=== PATIENT | female | born 1940 | race Caucasian/White ===

== ENCOUNTER 2016-12-09 20:45 | Emergency (ER) | payer MEDICARE, MEDICAID ==
[2016-12-09 21:07] VITALS: BP 151/84
--- NOTE | 2016-12-09 21:35 | EDM.PDOC ---
ED HPI Skin/Rash - General Chief Complaint: Skin Complaint Stated Complaint: left foot redness Time Seen by Provider: 12/09/16 20:50 Source: Reports: Patient, Family, retirement records, RN, RN notes reviewed History Limitations: Reports: No limitations - History of Present Illness INITIAL COMMENTS - FREE TEXT/NARRATIVE: Patient is brought to the emergency room at [facility] by her son for concerns of left foot pain and new onset swelling. The patient states she noticed increased redness and swelling of the left foot earlier today. The patient states she has pain only on the dorsum side of the foot. The patient states that it is painful to ambulate. The patient denies any shortness of breath. No chest pain. No previous history of any left foot injury or trauma. No previous history of any left foot surgeries. According to [facility] records the patient had a temperature of 99.2 prior to presentation. Symptom Onset Date: 12/09/16 Timing: Reports: gradual onset Location, Skin: Reports: lower extremity, left Severity: mild - Related Data Allergies Allergy/AdvReac Type Severity Reaction Status Date / Time No Known Allergies Allergy Verified 12/09/16 21:28 Home Meds: Ambulatory Orders Medication Instructions Recorded Confirmed Acetaminophen [Tylenol] 1 tab PO Q4H PRN 08/01/14 12/09/16 Sennosides/Docusate Sodium 2 each PO BID 08/01/14 12/09/16 [Senna-S] traZODone 50 mg PO BEDTIME PRN #30 tablet 12/04/14 12/09/16 Bisacodyl 5 mg PO ASDIRECTED PRN 02/04/16 12/09/16 Bisacodyl 10 mg RC DAILY PRN 02/04/16 12/09/16 Calcium Carbonate [Tums] 500 mg PO DAILY 02/04/16 02/04/16 Cyanocobalamin (Vitamin B-12) 1,000 mcg PO DAILY 02/04/16 02/04/16 [Vitamin B-12] Ergocalciferol (Vitamin D2) 2,000 unit PO DAILY 02/04/16 12/09/16 [Vitamin D2] Linaclotide [Linzess] 145 mcg PO DAILY 02/04/16 12/09/16 Omeprazole Magnesium [Prilosec Otc] 20 mg PO DAILY 02/04/16 12/09/16 Polyethylene Glycol 3350 [MiraLAX] 17 gm PO BID PRN 02/04/16 12/09/16 rOPINIRole HCl [Requip] 0.5 mg PO TID 02/04/16 12/09/16 traMADol [Ultram] 100 mg PO TID PRN 02/04/16 12/09/16 Calcium Carbonate [Tums Ultra] 400 mg PO Q6H PRN 12/09/16 12/09/16 Cyanocobalamin (Vitamin B-12) 1,000 mcg IJ ASDIRECTED 12/09/16 12/09/16 [B-12 Compliance] DULoxetine [Cymbalta] 60 mg PO DAILY 12/09/16 12/09/16 Ferrous Gluconate 324 mg PO DAILY 12/09/16 12/09/16 Gabapentin [Neurontin] 100 mg PO BID 12/09/16 12/09/16 Ibuprofen 400 mg PO Q6H PRN 12/09/16 12/09/16 Levothyroxine 25 mcg PO ACBREAKFAST 12/09/16 12/09/16 Magnesium Amino Acid Chelate 128 mg PO BID 12/09/16 12/09/16 [Magnesium] Menthol [Cough Drops] 5.8 mg MM ASDIRECTED PRN 12/09/16 12/09/16 Potassium Chloride 10 meq PO BID 12/09/16 12/09/16 Past Medical History Gastrointestinal History: Reports: Chronic constipation, GERD Musculoskeletal History: Reports: Back pain, chronic, Osteoarthritis, Osteoporosis, Other (see below) Other Musculoskeletal History: disorder of bone, unspecified Neurological History: Reports: Other (see below) Other Neuro History: unspecified dementia without behavioral disturbance Psychiatric History: Reports: Anxiety, Dementia, Depression Endocrine/Metabolic History: Reports: Hypothyroidism Social & Family History - Family History Family Medical History: Noncontributory - Tobacco Use Smoking Status *Q: Former Smoker Years of Tobacco use: 60 Second Hand Smoke Exposure: No - Alcohol Use Days Per Week of Alcohol Use: 0 - Recreational Drug Use Recreational Drug Use: No ED ROS GENERAL - Review of Systems Review Of Systems: See Below Constitutional: Denies: fever, chills, weakness Respiratory: Denies: Shortness of Breath, Cough Cardiovascular: Denies: Chest pain, Palpitations Musculoskeletal: Reports: foot pain (left, with swelling) Skin: Reports: erythema (left foot) Neurological: Reports: No Symptoms. Denies: Headache, Numbness, Paresthesia, Tingling ED EXAM, SKIN/RASH Exam: See Below Exam Limited By: No limitations General Appearance: alert, no apparent distress Respiratory/Chest: no respiratory distress, lungs clear, normal breath sounds Cardiovascular: regular rate, rhythm Peripheral Pulses: 1+: posterior tibial (L), dorsalis pedis (L), 2+: radial (L) , radial (R) Extremities: pedal edema (Left +2), increased warmth (Left foot), redness (Left foot). No: Yves's Sign Neurological: alert, oriented Skin: Warm, Dry, Intact, Normal color, No rash, Erythema (Left foot), Increased warmth (Left foot) Location, Skin: lower extremity, left Associated features: warmth, tenderness, swelling Course - Vital Signs Last Recorded V/S: Last Vital Signs Temp 36.6 C 12/09/16 21:03 Pulse 76 12/09/16 21:03 Resp 18 12/09/16 21:03 BP 151/84 H 12/09/16 21:03 Pulse Ox 95 12/09/16 21:03 - Orders/Labs/Meds Orders: Active Orders 24 hr Category Date Time Status Foot Comp Min 3V Lt [CR] Stat Exams 12/09/16 21:06 Taken Labs: Laboratory Tests 12/09/16 12/09/16 12/09/16 Range/Units 21:34 21:34 21:34 WBC 8.1 (4.0-10.0) x10^3/uL RBC 4.10 (4.00-5.50) x10^6/uL Hgb 11.7 L (12.0-16.0) g/dL Hct 37.2 (33.0-47.0) % MCV 90.7 (78.0-93.0) fL MCH 28.5 (26.0-32.0) pg MCHC 31.5 L (32.0-36.0) g/dL RDW Coeff of Randell 15.5 H (10.0-15.0) % Plt Count 219 (130-400) x10^3/uL Neut % (Auto) 63.7 (50.0-80.0) % Lymph % (Auto) 21.7 L (25.0-50.0) % [place] % (Auto) 8.6 (2.0-11.0) % Eos % (Auto) 5.8 H (0.0-4.0) % Baso % (Auto) 0.2 (0.2-1.2) % D-Dimer, Quantitative 1.13 H (<=0.58) mg/LFEU Sodium 139 (136-145) mmol/L Potassium 4.0 (3.5-5.1) mmol/L Chloride 102 (98-107) mmol/L Carbon Dioxide 32 (21-32) mmol/L BUN 10 (7-18) mg/dL Creatinine 0.7 (0.55-1.02) mg/dL Est Cr Clr Drug Dosing TNP Estimated GFR (MDRD) > 60 Glucose 85 (74-106) mg/dL Lactic Acid (0.4-2.0) mmol/L Calcium 9.4 (8.5-10.1) mg/dL C-Reactive Protein < 0.2 (<=0.9) mg/dL 12/09/16 Range/Units 21:34 WBC (4.0-10.0) x10^3/uL RBC (4.00-5.50) x10^6/uL Hgb (12.0-16.0) g/dL Hct (33.0-47.0) % MCV (78.0-93.0) fL MCH (26.0-32.0) pg MCHC (32.0-36.0) g/dL RDW Coeff of Randell (10.0-15.0) % Plt Count (130-400) x10^3/uL Neut % (Auto) (50.0-80.0) % Lymph % (Auto) (25.0-50.0) % [place] % (Auto) (2.0-11.0) % Eos % (Auto) (0.0-4.0) % Baso % (Auto) (0.2-1.2) % D-Dimer, Quantitative (<=0.58) mg/LFEU Sodium (136-145) mmol/L Potassium (3.5-5.1) mmol/L Chloride (98-107) mmol/L Carbon Dioxide (21-32) mmol/L BUN (7-18) mg/dL Creatinine (0.55-1.02) mg/dL Est Cr Clr Drug Dosing Estimated GFR (MDRD) Glucose (74-106) mg/dL Lactic Acid 1.3 (0.4-2.0) mmol/L Calcium (8.5-10.1) mg/dL C-Reactive Protein (<=0.9) mg/dL Meds: Medications Discontinued Medications Generic Name Dose Route Start Last Admin Trade Name Freq PRN Reason Stop Dose Admin Ceftriaxone Sodium 1 gm/ 0 gm 12/09/16 21:58 Lidocaine HCl 2.1 ml IM 12/09/16 21:59 ONETIME ONE - Radiology Interpretation Free Text/Narrative:: No acute fracture or dislocation; mild soft tissue swelling; severe bone demineralization; See scanned report in EMR Discussed with Dr. Fletcher Isbell, Radiology Departure - Departure Time of Disposition: 22:01 Disposition: DC/Tfer to [facility] 03 Condition: good Clinical Impression: Cellulitis of foot, left Instructions: Cellulitis, Adult Referrals: Sandy Salcedo, DO [Primary Care Provider] - Forms: ED Department Discharge Additional Instructions: 1. Stay well hydrated and rest 2. Take your antibiotics for the full coarse, even if you are feeling better 3. May use Tylenol for discomfort 4. Rest, elevate, and use some ice on the foot several times a day 5. If symptoms worsen over the next day or so, return for further evaluation 6. See you Primary as symptoms warrant - Problem List Review Problem List Initiated/Reviewed/Updated: Yes - My Orders Last 24 Hours: My Active Orders 12/09/16 21:06 Foot Comp Min 3V Lt [CR] Stat - Assessment/Plan Last 24 Hours: My Active Orders 12/09/16 21:06 Foot Comp Min 3V Lt [CR] Stat Plan: Patient will be discharge back to [place] and treated with oral abx for cellulitis of left foot. D-dimer is elevated, however physical assessment does not support a diagnosis of DVT. Patient was given 1 g IM Rocephin prior to discharge. Please see discharge instructions. Case discussed with Dr. Cyndie Brown.
[2016-12-09 21:56] LABS: CHLORIDE,CL 102 mmol/L (98-107); SODIUM,NA 139 mmol/L (136-145)
[2016-12-09] MEDS ORDERED: cefTRIAXone 1 GM, Lidocaine 1% 2.1 ML IM ONE ×2 (21:58)
== END 2016-12-09 22:26 ==
LOC: VM.ED 20:45
DX: L03.116 Cellulitis of left lower limb (principal); K21.9 Gastro-esophageal reflux disease without esophagitis; F03.90 Unspecified dementia, unspecified severity, without behavioral disturbance, psychotic disturbance, mood disturbance, and anxiety; F41.9 Anxiety disorder, unspecified; F32.9 Major depressive disorder, single episode, unspecified; E03.9 Hypothyroidism, unspecified; Z79.899 Other long term (current) drug therapy; Z87.891 Personal history of nicotine dependence
CPT/HCPCS: 36415; 73630; 80048; 83605; 85025; 85379; 86140; 96372; 99284; J0696; 99283-GF

== ENCOUNTER 2017-02-13 16:18 | Inpatient (IN) | payer MEDICARE, MEDICAID ==
[2017-02-13] MEDS ORDERED: Sodium Chloride 0.9% 1,000 ML IV ONE (16:43)
[2017-02-13] MEDS ORDERED: Sodium Chloride 0.9% 10 ML Syringe FLUSH PRN (16:43)
[2017-02-13 17:32] LABS: CHLORIDE,CL 117 mmol/L (98-107); SODIUM,NA 154 mmol/L (136-145)
--- NOTE | 2017-02-13 18:24 | EDM.PDOC ---
ED HPI GENERAL MEDICAL PROBLEM - General Chief Complaint: Gastrointestinal Problem Stated Complaint: diarrhea, dehydration Time Seen by Provider: 02/13/17 16:32 Source of Information: Reports: Patient, Custodial Records, Other History Limitations: Reports: No Limitations - History of Present Illness INITIAL COMMENTS - FREE TEXT/NARRATIVE: Patient has had diarrhea for the last week. Report from the senior living states she is dehydrated, has become weak, and has needed assists to get around. This is not how she usually acts. She has been getting retirement antibiotics for treatment of peripheral vascular disease. She has had a low grade temp from time to time. She denies headache, chest pain, shortness of breath. Denies any urinary problems. Abdominal aches/pains are endorsed. Recommendation to come to the ER from her PCP Dr. Sandy Salcedo. Medical history includes dementia, anxiety, hypokalemia, hypothyroidism, depression, anemia, GERD, PVD Onset: Gradual Associated Symptoms: Reports: Other (diarrhea) - Related Data Allergies Allergy/AdvReac Type Severity Reaction Status Date / Time No Known Allergies Allergy Verified 02/13/17 16:42 Home Meds: Home Meds Acetaminophen [Tylenol] 1 tab PO Q4H PRN 08/01/14 [History] Sennosides/Docusate Sodium [Senna-S] 2 each PO BID 08/01/14 [History] traZODone 50 mg PO BEDTIME PRN #30 tablet 12/04/14 [Rx] Bisacodyl 5 mg PO ASDIRECTED PRN 02/04/16 [History] Bisacodyl 10 mg RC DAILY PRN 02/04/16 [History] Calcium Carbonate [Tums] 500 mg PO DAILY 02/04/16 [History] Ergocalciferol (Vitamin D2) [Vitamin D2] 2,000 unit PO DAILY 02/04/16 [History] Linaclotide [Linzess] 145 mcg PO DAILY 02/04/16 [History] Omeprazole Magnesium [Prilosec Otc] 20 mg PO DAILY 02/04/16 [History] Polyethylene Glycol 3350 [MiraLAX] 17 gm PO BID PRN 02/04/16 [History] rOPINIRole HCl [Requip] 0.5 mg PO TID 02/04/16 [History] Calcium Carbonate [Tums Ultra] 400 mg PO Q6H PRN 12/09/16 [History] Cyanocobalamin (Vitamin B-12) [B-12 Compliance] 1,000 mcg IJ ASDIRECTED [History] DULoxetine [Cymbalta] 60 mg PO DAILY 12/09/16 [History] Ferrous Gluconate 324 mg PO DAILY 12/09/16 [History] Gabapentin [Neurontin] 100 mg PO BID 12/09/16 [History] Ibuprofen 400 mg PO Q6H PRN 12/09/16 [History] Levothyroxine 25 mcg PO ACBREAKFAST 12/09/16 [History] Magnesium Amino Acid Chelate [Magnesium] 128 mg PO BID 12/09/16 [History] Menthol [Cough Drops] 5.8 mg MM ASDIRECTED PRN 12/09/16 [History] Potassium Chloride 10 meq PO BID 12/09/16 [History] Loperamide HCl [Imodium A-D] 4 mg PO ASDIRECTED PRN 02/13/17 [History] Past Medical History Gastrointestinal History: Reports: Chronic Constipation, GERD Musculoskeletal History: Reports: Back Pain, Chronic, Osteoarthritis, Osteoporosis, Other (See Below) Other Musculoskeletal History: disorder of bone, unspecified Neurological History: Reports: Other (See Below) Other Neuro History: unspecified dementia without behavioral disturbance Psychiatric History: Reports: Anxiety, Dementia, Depression, Mood Swings, Other (See Below) Other Psychiatric History: restless leg syndrome Endocrine/Metabolic History: Reports: Hypothyroidism Hematologic History: Reports: Anemia Social & Family History - Family History Family Medical History: Noncontributory - Tobacco Use Smoking Status *Q: Unknown Ever Smoked Years of Tobacco use: 60 Second Hand Smoke Exposure: No - Alcohol Use Days Per Week of Alcohol Use: 0 - Recreational Drug Use Recreational Drug Use: No ED ROS GENERAL - Review of Systems Review Of Systems: See Below Constitutional: Reports: Malaise, Weakness HEENT: Reports: No Symptoms Respiratory: Reports: No Symptoms Cardiovascular: Reports: No Symptoms Endocrine: Reports: No Symptoms GI/Abdominal: Reports: Diarrhea : Reports: No Symptoms Musculoskeletal: Reports: No Symptoms Skin: Reports: No Symptoms Neurological: Reports: Weakness Psychiatric: Reports: No Symptoms Hematologic/Lymphatic: Reports: No Symptoms Immunologic: Reports: No Symptoms ED EXAM, GI/ABD - Physical Exam Exam: See Below Exam Limited By: No Limitations General Appearance: Alert, WD/WN, Mild Distress Eyes: Bilateral: EOMI Throat/Mouth: Normal Inspection, Normal Oropharynx Head: Atraumatic, Normocephalic Neck: Normal Inspection, Supple, Non-Tender Respiratory/Chest: No Respiratory Distress, Lungs Clear, Normal Breath Sounds Cardiovascular: Normal Peripheral Pulses, Regular Rate, Rhythm, No Edema, No Gallop, Systolic Murmur GI/Abdominal: Normal Bowel Sounds, Soft, No Organomegaly, No Distention, Tenderness Back Exam: Normal Inspection, Full Range of Motion Extremities: Normal Range of Motion, Non-Tender, Slow Capillary Refill, Mottled (right hand fingers are purple with slow capillary refill, pulses are intact) Neurological: Alert, Oriented, CN II-XII Intact, Normal Reflexes, No Motor/ Sensory Deficits, Slow to Respond, Abnormal Gait Psychiatric: Normal Affect, Normal Mood Skin Exam: Warm, Dry, Intact, Ecchymosis, Erythema, Petechiae (to bilateral lower legs) Lymphatic: No Adenopathy Course - Vital Signs Last Recorded V/S: Last Vital Signs Temp 37.3 C 02/13/17 16:20 Pulse 115 H 02/13/17 17:29 Resp 14 02/13/17 17:29 BP 144/62 H 02/13/17 17:29 Pulse Ox 94 L 02/13/17 17:29 - Orders/Labs/Meds Orders: Active Orders 24 hr Category Date Time Status Chest 1V Frontal [CR] Stat Exams 02/13/17 17:42 Ordered BLOOD GAS ARTERIAL [BG] Stat Lab 02/13/17 17:44 Ordered C DIFFICILE TOXIN BY PCR [MREF] Stat Lab 02/13/17 16:43 Uncollected CULTURE BLOOD [BC] Stat Lab 02/13/17 17:44 Ordered CULTURE BLOOD [BC] Stat Lab 02/13/17 17:44 Ordered LACTIC ACID [CHEM] Stat Lab 02/13/17 17:44 Ordered OVA & PARASITES Routine Lab 02/13/17 16:44 Uncollected Sodium Chloride 0.9% [Saline Flush] Med 02/13/17 16:43 Ordered 10 ml FLUSH ASDIRECTED PRN Vancomycin Pharmacy to Dose [Pharmacy to Dose - Med 02/13/17 18:15 Ordered Vancomycin] 1 dose .XX ASDIRECTED metroNIDAZOLE/Normal Saline [Flagyl 500 MG in NS 100 ML Med 02/13/17 18:15 Ordered ] 500 mg Premix Bag 1 bag IV Q8H Blood Culture x2 Reflex Set [OM.PC] Stat Oth 02/13/17 17:44 Ordered Isolation [COMM] Urgent Oth 02/13/17 16:43 Ordered Saline Lock Insert [OM.PC] Routine Oth 02/13/17 16:43 Ordered Medication Orders Metronidazole 500 mg/ Premix 100 mls @ 100 mls/hr IV Q8H [facility] Sodium Chloride (Saline Flush) 10 ml FLUSH ASDIRECTED PRN PRN Reason: Keep Vein Open Vancomycin HCl (Pharmacy To Dose - Vancomycin) 1 dose .XX ASDIRECTED [facility] Labs: Laboratory Tests 02/13/17 02/13/17 02/13/17 Range/Units 16:55 16:55 17:21 WBC 35.7 H* (4.0-10.0) x10^3/uL RBC 5.28 (4.00-5.50) x10^6/uL Hgb 15.5 D (12.0-16.0) g/dL Hct 47.6 H (33.0-47.0) % MCV 90.2 (78.0-93.0) fL MCH 29.4 (26.0-32.0) pg MCHC 32.6 (32.0-36.0) g/dL RDW Coeff of Randell 16.5 H (10.0-15.0) % Plt Count 313 D (130-400) x10^3/uL Add Manual Diff Yes Neutrophils % (Manual) 87 H (50-80) % Band Neutrophils % 5 (0-6) % Lymphocytes % (Manual) 7 L (25-50) % Atypical Lymphs % 1 H (0) % Platelet Estimate Adequate Sodium 154 H D (136-145) mmol/L Potassium 4.5 (3.5-5.1) mmol/L Chloride 117 H D (98-107) mmol/L Carbon Dioxide 23 (21-32) mmol/L BUN 47 H D (7-18) mg/dL Creatinine 1.2 H (0.55-1.02) mg/dL Est Cr Clr Drug Dosing TNP Estimated GFR (MDRD) 44 Glucose 138 H (74-106) mg/dL Calcium 9.1 (8.5-10.1) mg/dL Corrected Calcium 10.46 H (8.5-10.1) mg/dL Phosphorus 3.5 (2.6-4.7) mg/dL Magnesium 2.4 (1.8-2.4) mg/dL Total Bilirubin 0.3 (0.2-1.0) mg/dL AST 103 H (15-37) U/L ALT 70 H (14-59) U/L Alkaline Phosphatase 179 H (46-116) U/L C-Reactive Protein 12.7 H (<=0.9) mg/dL B-Natriuretic Peptide 1813 H (<=450) pg/mL Total Protein 8.0 (6.4-8.2) g/dL Albumin 2.3 L (3.4-5.0) g/dL Globulin 5.7 Albumin/Globulin Ratio 0.40 Urine Color Yellow (YELLOW) Urine Appearance Slightly cloudy H (CLEAR) Urine pH 5.5 (5.0-8.0) Ur Specific [place] 1.020 Urine Protein 100 H (NEGATIVE) mg/dL Urine Glucose (UA) Negative (NEGATIVE) mg/dL Urine Ketones Negative (NEGATIVE) mg/dL Urine Occult Blood Negative (NEGATIVE) Urine Nitrite Negative (NEGATIVE) Urine Bilirubin Small H (NEGATIVE) Urine Urobilinogen 0.2 (0.2) EU/dL Ur Leukocyte Esterase Negative (NEGATIVE) Urine RBC 0-5 (NOT SEEN) /HPF Urine WBC 0-5 (NOT SEEN) /HPF Ur Squamous Epith Cells Few H (NEGATIVE) /HPF Amorphous Sediment Few Urine Bacteria Few H (NEGATIVE) /HPF Hyaline Casts Few H (NEGATIVE) /HPF Urine Mucus Few H (NEGATIVE) /LPF Meds: Medications Generic Name Dose Route Start Last Admin Trade Name Freq PRN Reason Stop Dose Admin Metronidazole 500 mg/ Premix 100 mls @ 100 mls/hr 02/13/17 18:15 IV Q8H MARIANA Sodium Chloride 10 ml 02/13/17 16:43 Saline Flush FLUSH ASDIRECTED PRN Keep Vein Open Vancomycin HCl 1 dose 02/13/17 18:15 Pharmacy To Dose - Vancomycin .XX ASDIRECTED MARIANA Discontinued Medications Generic Name Dose Route Start Last Admin Trade Name Freq PRN Reason Stop Dose Admin Sodium Chloride 1,000 mls @ 999 mls/hr 02/13/17 16:43 02/13/17 17:00 Normal Saline IV 02/13/17 17:43 999 mls/hr ONETIME ONE Administration - Re-Assessments/Exams Free Text/Narrative Re-Assessment/Exam: 02/13/17 18:[address] review [address] patient [address] Dr. Naranjo. Will admit to inpatient with her covering. Departure - Departure Time of Disposition: 18:12 Disposition: Admitted As Inpatient 66 Condition: Fair Clinical Impression: Diarrhea, Leukocytosis, Hypernatremia, Dehydration symptoms, Antibiotic- associated diarrhea - Discharge Information Forms: ED Department Discharge - My Orders Last 24 Hours: My Active Orders 02/13/17 16:43 C DIFFICILE TOXIN BY PCR [MREF] Stat Sodium Chloride 0.9% [Saline Flush] 10 ml FLUSH ASDIRECTED PRN Isolation [COMM] Urgent Saline Lock Insert [OM.PC] Routine 02/13/17 16:44 OVA & PARASITES Routine 02/13/17 17:42 Chest 1V Frontal [CR] Stat 02/13/17 17:44 BLOOD GAS ARTERIAL [BG] Stat CULTURE BLOOD [BC] Stat CULTURE BLOOD [BC] Stat LACTIC ACID [CHEM] Stat Blood Culture x2 Reflex Set [OM.PC] Stat 02/13/17 18:15 Vancomycin Pharmacy to Dose [Pharmacy to Dose - Vancomycin] 1 dose .XX ASDIRECTED metroNIDAZOLE/Normal Saline [Flagyl 500 MG in NS 100 ML] 500 mg Premix Bag 1 bag IV Q8H - Assessment/Plan Last 24 Hours: My Active Orders 02/13/17 16:43 C DIFFICILE TOXIN BY PCR [MREF] Stat Sodium Chloride 0.9% [Saline Flush] 10 ml FLUSH ASDIRECTED PRN Isolation [COMM] Urgent Saline Lock Insert [OM.PC] Routine 02/13/17 16:44 OVA & PARASITES Routine 02/13/17 17:42 Chest 1V Frontal [CR] Stat 02/13/17 17:44 BLOOD GAS ARTERIAL [BG] Stat CULTURE BLOOD [BC] Stat CULTURE BLOOD [BC] Stat LACTIC ACID [CHEM] Stat Blood Culture x2 Reflex Set [OM.PC] Stat 02/13/17 18:15 Vancomycin Pharmacy to Dose [Pharmacy to Dose - Vancomycin] 1 dose .XX ASDIRECTED metroNIDAZOLE/Normal Saline [Flagyl 500 MG in NS 100 ML] 500 mg Premix Bag 1 bag IV Q8H
[2017-02-13] MEDS: metroNIDAZOLE/Normal Saline 500 MG in Premix Bag 1 BAG IV SCH (18:27)
[2017-02-13] MEDS ORDERED: Acetaminophen 325 MG Tab PO PRN (19:50)
[2017-02-13] MEDS ORDERED: traZODone 50 MG Tab PO PRN (19:50)
[2017-02-13] MEDS: Vancomycin 125 MG/2.5 ML Oral Solution 2.5 ML UD Cup PO SCH (19:59)
--- NOTE | 2017-02-13 20:12 | PCM.HP ---
H&P History of Present Illness - General Date of Service: 02/13/17 Admit Problem/Dx: Admission Diagnosis/Problem Admission Diagnosis/Problem Leukocytosis Source of Information: Patient, Family, Long Term Records History Limitations: Reports: Altered Mental Status (patient history is limited ; most obtained from son and retirement records) - History of Present Illness Initial Comments - Free Text/Narative: Mrs. Lin is a 76 yo female who presented to the ED today for evaluation due to a change in mental status today. She has been struggling with diarrhea for the past week. She has had >3 loose stools daily over that time period. No notes of blood and the patient does not believe she has had any blood in the stools or black, tarry stools. She has lost 10 pounds. Today, she was much more sleepy than usual and was requiring more assistance with ADL's. Therefore, it was recommended she present to the ED for evaluation. She has not had any abdominal pain, fever, or chills. No other residents with similar symptoms. She has been on multiple different antibiotics within the past month for treatment of a leg cellulitis. By the time I saw her, her mentation had already improved and she was acting more like her usual self. - Related Data Allergies/Adverse Reactions: Allergies Allergy/AdvReac Type Severity Reaction Status Date / Time No Known Allergies Allergy Verified 02/13/17 16:42 Home Medications: Home Meds Acetaminophen [Tylenol] 1 tab PO Q4H PRN 08/01/14 [History] Sennosides/Docusate Sodium [Senna-S] 2 each PO BID 08/01/14 [History] traZODone 50 mg PO BEDTIME PRN #30 tablet 12/04/14 [Rx] Bisacodyl 5 mg PO ASDIRECTED PRN 02/04/16 [History] Bisacodyl 10 mg RC DAILY PRN 02/04/16 [History] Calcium Carbonate [Tums] 500 mg PO DAILY 02/04/16 [History] Ergocalciferol (Vitamin D2) [Vitamin D2] 2,000 unit PO DAILY 02/04/16 [History] Linaclotide [Linzess] 145 mcg PO DAILY 02/04/16 [History] Omeprazole Magnesium [Prilosec Otc] 20 mg PO DAILY 02/04/16 [History] Polyethylene Glycol 3350 [MiraLAX] 17 gm PO BID PRN 02/04/16 [History] rOPINIRole HCl [Requip] 0.5 mg PO TID 02/04/16 [History] Calcium Carbonate [Tums Ultra] 400 mg PO Q6H PRN 12/09/16 [History] Cyanocobalamin (Vitamin B-12) [B-12 Compliance] 1,000 mcg IJ ASDIRECTED [History] DULoxetine [Cymbalta] 60 mg PO DAILY 12/09/16 [History] Ferrous Gluconate 324 mg PO DAILY 12/09/16 [History] Gabapentin [Neurontin] 100 mg PO BID 12/09/16 [History] Ibuprofen 400 mg PO Q6H PRN 12/09/16 [History] Levothyroxine 25 mcg PO ACBREAKFAST 12/09/16 [History] Magnesium Amino Acid Chelate [Magnesium] 128 mg PO BID 12/09/16 [History] Menthol [Cough Drops] 5.8 mg MM ASDIRECTED PRN 12/09/16 [History] Potassium Chloride 20 meq PO BID 12/09/16 [History] Loperamide HCl [Imodium A-D] 4 mg PO ASDIRECTED PRN 02/13/17 [History] Past Medical History HEENT History: Reports: None Cardiovascular History: Reports: None Respiratory History: Reports: None Gastrointestinal History: Reports: Chronic Constipation, GERD Genitourinary History: Reports: UTI, Recurrent Musculoskeletal History: Reports: Back Pain, Chronic, Osteoarthritis, Osteoporosis Neurological History: Reports: Other (See Below) Other Neuro History: unspecified dementia without behavioral disturbance Psychiatric History: Reports: Anxiety, Dementia, Depression, Mood Swings, Other (See Below) Other Psychiatric History: restless leg syndrome Endocrine/Metabolic History: Reports: Hypothyroidism Hematologic History: Reports: Anemia Immunologic History: Reports: None Oncologic (Cancer) History: Reports: None Dermatologic History: Reports: None - Infectious Disease History Infectious Disease History: Reports: None Social & Family History - Family History Family Medical History: Noncontributory - Tobacco Use Smoking Status *Q: Former Smoker Tobacco Use Within Last Twelve Months: No Years of Tobacco use: 60 Second Hand Smoke Exposure: No - Alcohol Use Alcohol Use History: No Days Per Week of Alcohol Use: 0 Alcohol Use in Last Twelve Months: No - Recreational Drug Use Recreational Drug Use: No - Living Situation & Occupation Living situation: Reports: , Extended Care Facility Occupation: Retired H&P Review of Systems - Review of Systems: Review Of Systems: See Below General: Reports: No Symptoms HEENT: Reports: No Symptoms Pulmonary: Reports: No Symptoms Cardiovascular: Reports: No Symptoms Gastrointestinal: Reports: Diarrhea. Denies: Abdominal Pain, Black Stool, Bloody Stool, Nausea, Vomiting Genitourinary: Reports: No Symptoms Musculoskeletal: Reports: No Symptoms Skin: Reports: No Symptoms Neurological: Reports: Weakness Exam - Exam Exam: See Below - Vital Signs Vital Signs: Last Vital Signs Temp 37.3 C 02/13/17 16:20 Pulse 118 H 02/13/17 18:33 Resp 12 02/13/17 18:34 BP 158/65 H 02/13/17 18:34 Pulse Ox 96 02/13/17 18:33 - Exam General: Alert, Cooperative. No: Mild Distress, Moderate Distress, Severe Distress HEENT: Conjunctiva Clear, Mucosa Moist & [place], Posterior Pharynx Clear, Pupils Equal, Pupils Reactive, TMs Clear Neck: Supple, Trachea Midline. No: Lymphadenopathy, Thyromegaly Lungs: Clear to Auscultation, Normal Respiratory Effort Cardiovascular: Regular Rate, Normal S1, Normal S2, Irregular Rhythm. No: Systolic Murmur, Diastolic Murmur Abdomen: Normal Bowel Sounds, Soft. No: Organomegaly, Distention, Tenderness, Mass Extremities: Normal Pulses, Cyanosis (involving the 3rd and 4th fingers of the right hand - not new). No: Edema Skin: Warm, Dry, Intact - Patient Data Result Diagrams: 02/13/17 16:55 02/13/17 16:55 *Q Meaningful Use (ADM) - VTE *Q VTE Criteria *Q: VTE Anticoagulation Contraindications: Med/TX not Indicated/Need - Stroke *Q Stroke Criteria *Q: - AMI *Q AMI Criteria *Q: - Problem List (1) Dehydration SNOMED Code(s): 49393458 ICD Code: E86.0 - DEHYDRATION Status: Acute Current Visit: Yes Problem Details: - Patient has evidence of dehydration on exam and per lab results. - She got 1 liter of NS in the ED. - Vital signs are stable overall. - Therefore, I will await repeat sodium results before giving more fluids. (2) Hypernatremia SNOMED Code(s): 05626742 ICD Code: E87.0 - HYPEROSMOLALITY AND HYPERNATREMIA Status: Acute Current Visit: Yes Problem Details: - Unclear duration but likely >48 hours. - Will need to be corrected slowly. - Will repeat sodium now after she has gotten 1 L of IV fluids. - Will likely give 1/2 normal saline overnight to prevent overcorrection but will consider D5W if sodium level is up from initial. (3) Acute kidney injury SNOMED Code(s): 45657182 ICD Code: N17.9 - ACUTE KIDNEY FAILURE, UNSPECIFIED Status: Acute Current Visit: Yes Problem Details: - Creatinine is normally 0.6 so her elevation to 1.2 is quite significant. - This is likely prerenal related to dehydration. No evidence of an alternative cause. - Will follow creatinine daily and investigate further if this does not improve with IV fluids. (4) Antibiotic-associated diarrhea SNOMED Code(s): 460978485 ICD Code: T36.91XA - POISONING BY UNSP SYSTEMIC ANTIBIOTIC, ACCIDENTAL, INIT ; K52.1 - TOXIC GASTROENTERITIS AND COLITIS Status: Acute Current Visit: Yes Problem Details: - Presumed to have c. difficile given recent use of antibiotics. - Testing is ordered. - Patient meets criteria for treatment with both IV flagyl and PO vancomycin given WBC >35,000, elevated lactate, and MARTINA. - Once improving, will consider transitioning to PO vancomycin only vs. just transition to PO flagyl and vancomycin. - Will CT if she develops any abdominal pain or fever. (5) Leukocytosis SNOMED Code(s): 830848110, 145610333 ICD Code: D72.829 - ELEVATED WHITE BLOOD CELL COUNT, UNSPECIFIED Status: Acute Current Visit: Yes Problem Details: - WBC elevated is significant. Likely has c. difficile as the etiology. No symptoms or objective findings (labs , CXR) to suggest alternative diagnosis. - Treatment for c. diff as above. - Recheck daily. Qualifiers: Leukocytosis type: unspecified Qualified Code(s): D72.829 - Elevated white blood cell count, unspecified (6) Hypothyroidism SNOMED Code(s): 31228147 ICD Code: E03.9 - HYPOTHYROIDISM, UNSPECIFIED Status: Chronic Current Visit: Yes Problem Details: - Continue levothyroxine. Qualifiers: Hypothyroidism type: acquired Qualified Code(s): E03.9 - Hypothyroidism, unspecified (7) Anxiety disorder SNOMED Code(s): 021634971 ICD Code: F41.9 - ANXIETY DISORDER, UNSPECIFIED Status: Chronic Priority : High Current Visit: No Problem Details: - Continue cymbalta and trazodone. (8) Chronic back pain SNOMED Code(s): 615788749 ICD Code: M54.9 - DORSALGIA, UNSPECIFIED; G89.29 - OTHER CHRONIC PAIN Status: Chronic Current Visit: No Problem Details: - Continue cymbalta and gabapentin. (9) Dementia SNOMED Code(s): 37774316 ICD Code: F03.90 - UNSPECIFIED DEMENTIA WITHOUT BEHAVIORAL DISTURBANCE Status: Chronic Priority: High Current Visit: No Problem Details: - Not on any medications. - Will treat any behavioral disturbance as indicated. (10) GERD (gastroesophageal reflux disease) SNOMED Code(s): 180310752 ICD Code: K21.9 - GASTRO-ESOPHAGEAL REFLUX DISEASE WITHOUT ESOPHAGITIS Status: Chronic Current Visit: Yes Problem Details: - Hold omeprazole given association with c. diff infection. - If she develops any GERD symptoms, will start an H2 lucian instead. Qualifiers: Esophagitis presence: esophagitis presence not specified Qualified Code(s) : K21.9 - Gastro-esophageal reflux disease without esophagitis (11) Restless leg syndrome SNOMED Code(s): 50039667 ICD Code: G25.81 - RESTLESS LEGS SYNDROME Status: Chronic Current Visit: Yes Problem Details: - Continue requip. Problem List Initiated/Reviewed/Updated: Yes Orders Last 24hrs: Active Orders 24 hr Category Date Time Status Antiembolic Devices [RC] PER UNIT ROUTINE Care 02/13/17 19:49 Ordered Notify Provider Vital Signs [RC] ASDIRECTED Care 02/13/17 19:41 Ordered Oxygen Therapy [RC] PRN Care 02/13/17 19:41 Ordered Up With Assistance [RC] ASDIRECTED Care 02/13/17 19:41 Ordered VTE/DVT Education [RC] PER UNIT ROUTINE Care 02/13/17 19:41 Ordered Vital Signs [RC] Q4H Care 02/13/17 19:41 Ordered Regular Diet [DIET] Diet 02/13/17 Breakfast Ordered BASIC METABOLIC PANEL,BMP [CHEM] Routine Lab 02/14/17 05:11 Ordered BASIC METABOLIC PANEL,BMP [CHEM] Urgent Lab 02/13/17 19:40 Ordered CBC WITH AUTO DIFF [HEME] Routine Lab 02/14/17 05:11 Ordered LACTIC ACID [CHEM] Urgent Lab 02/13/17 19:49 Ordered Acetaminophen [Tylenol] Med 02/13/17 19:50 Ordered 1 tab PO Q4H PRN DULoxetine [Cymbalta] Med 02/14/17 08:00 Ordered 60 mg PO DAILY Ferrous Gluconate [Ferrous Gluconate] Med 02/14/17 08:00 Ordered 324 mg PO DAILY Gabapentin [Neurontin] Med 02/13/17 20:00 Ordered 100 mg PO BID Levothyroxine Med 02/14/17 07:00 Ordered 25 mcg PO ACBREAKFAST Potassium Chloride [Potassium Chloride] Med 02/13/17 20:00 Ordered 20 meq PO BID rOPINIRole [Requip] Med 02/13/17 20:00 Ordered 0.5 mg PO TID traZODone Med 02/13/17 20:00 Ordered 50 mg PO BEDTIME Anticoagulation Contraindications VTE [AST] Per Unit Oth 02/13/17 19:41 Ordered Routine Sequential Compression Device [OM.PC] Per Unit Routine Oth 02/13/17 19:47 Ordered Resuscitation Status Routine Resus Stat 02/13/17 19:41 Ordered Medication Orders Acetaminophen (Tylenol) mg PO Q4H PRN PRN Reason: pain or fever Duloxetine HCl (Cymbalta) 60 mg PO DAILY [facility] Gabapentin (Neurontin) 100 mg PO BID [facility] Metronidazole 500 mg/ Premix 100 mls @ 100 mls/hr IV Q8H [facility] Last Admin: 02/13/17 18:27 Dose: 100 mls/hr Levothyroxine Sodium (Levothyroxine) 25 mcg PO ACBREAKFAST [facility] Non-Formulary Medication (Ferrous Gluconate [Ferrous Gluconate]) 324 mg PO DAILY [facility] Non-Formulary Medication (Potassium Chloride [Potassium Chloride]) 20 meq PO BID [facility] Ropinirole HCl (Requip) 0.5 mg PO TID [facility] Sodium Chloride (Saline Flush) 10 ml FLUSH ASDIRECTED PRN PRN Reason: Keep Vein Open Trazodone HCl (Trazodone) 50 mg PO BEDTIME [facility] Vancomycin HCl (Vancocin 125 Mg/2.5 Ml Soln) 125 mg PO QID [facility] Last Admin: 02/13/17 19:59 Dose: 125 mg Assessment/Plan Comment:: 76 yo female admitted with dehydration, MARTINA, and hypernatremia secondary to diarrhea which is likely c. difficile. Will treat with IV flagyl and PO vancomycin based on severity of infection. EKG obtained for her irregular heart beat and just shows PVC's and PAC's. Hold home stool regimen and prilosec. Will hold magnesium as well and replete IV as indicated. Continue potassium supplementation. Otherwise, see details under problems above. SCD's for VTE prophylaxis until Hgb is proven stable. Patient is admitted under acute. I anticipate at least 72 hours of hospitalization. Patient wishes to be DNR/DNI. Also discussed with her son, who is POA, and he agrees.
[2017-02-13 20:30] LABS: CHLORIDE,CL 121 mmol/L (98-107); SODIUM,NA 156 mmol/L (136-145)
[2017-02-13] MEDS: Potassium Chloride 20 MEQ Tab.ER PO SCH (20:51)
[2017-02-13] MEDS: rOPINIRole 0.5 MG Tab PO SCH (20:51)
[2017-02-13] MEDS: traZODone 50 MG Tab PO SCH (20:52)
[2017-02-13] MEDS: Gabapentin 100 MG Cap PO SCH (20:52)
[2017-02-13] MEDS ORDERED: Dextrose 5% in Water 1,000 ML IV SCH (21:00)
[2017-02-13] MEDS: Dextrose 5% in Water 1,000 ML IV SCH (22:14)
[2017-02-14] MEDS: metroNIDAZOLE/Normal Saline 500 MG in Premix Bag 1 BAG IV SCH ×3 (01:47→16:00)
[2017-02-14] MEDS: Levothyroxine 25 MCG Tab PO SCH (06:38)
[2017-02-14] MEDS ORDERED: Non-Formulary Medication 1 Each (Ferrous Gluconate [Ferrous Gluconate] 324 MG) PO SCH (08:00)
--- NOTE | 2017-02-14 08:20 | PCM.PN ---
- General Info Date of Service: 02/14/17 Subjective Update: Patient states she feels unwell today but that she does not feel any worse than yesterday. She denies any abdominal pain, fever, or chills. Nursing reports diarrhea overnight. She has not been eating well. - Review of Systems General: Reports: No Symptoms HEENT: Reports: no symptoms Pulmonary: Reports: no symptoms Cardiovascular: Reports: No Symptoms Gastrointestinal: Reports: Decreased appetite, Diarrhea. Denies: Abdominal pain , Nausea, Vomiting Genitourinary: Reports: no symptoms Musculoskeletal: Reports: no symptoms Skin: Reports: no symptoms - Patient Data Vitals - most recent: Last Vital Signs Temp 37.7 C 02/14/17 05:58 Pulse 67 02/14/17 05:58 Resp 32 H 02/14/17 05:58 BP 123/68 02/14/17 05:58 Pulse Ox 96 02/14/17 05:58 Weight - most recent: 50.122 kg I&O - last 24 hours: Intake & Output 02/13/17 02/14/17 02/14/17 22:59 06:59 14:59 Intake Total 1652 Balance 1652 Lab Results last 24 hrs: Laboratory Results - last 24 hr 02/13/17 02/13/17 02/14/17 Range/Units 20:05 20:05 07:40 Sodium 156 H 154 H (136-145) mmol/L Potassium 3.8 3.7 (3.5-5.1) mmol/L Chloride 121 H 121 H (98-107) mmol/L Carbon Dioxide 24 24 (21-32) mmol/L BUN 44 H 40 H (7-18) mg/dL Creatinine 1.2 H 1.1 H (0.55-1.02) mg/dL Est Cr Clr Drug Dosing TNP 34.41 Estimated GFR (MDRD) 44 48 Glucose 126 H 142 H (74-106) mg/dL Lactic Acid 1.9 (0.4-2.0) mmol/L Calcium 8.7 8.0 L (8.5-10.1) mg/dL Med Orders - Current: Current Medications Acetaminophen (Tylenol) 325 mg PO Q4H PRN PRN Reason: pain or fever Duloxetine HCl (Cymbalta) 60 mg PO DAILY [facility] Gabapentin (Neurontin) 100 mg PO BID [facility] Last Admin: 02/13/17 20:52 Dose: 100 mg Metronidazole 500 mg/ Premix 100 mls @ 100 mls/hr IV Q8H [facility] Last Admin: 02/14/17 01:47 Dose: 100 mls/hr Dextrose/Water (Dextrose 5% In Water) 1,000 mls @ 75 mls/hr IV ASDIRECTED [facility] Last Admin: 02/13/17 22:14 Dose: 50 mls/hr Levothyroxine Sodium (Levothyroxine) 25 mcg PO ACBREAKFAST [facility] Last Admin: 02/14/17 06:38 Dose: 25 mcg Potassium Chloride (Klor-Con M20) 20 meq PO BIDMEALS [facility] Last Admin: 02/13/17 20:51 Dose: 20 meq Ropinirole HCl (Requip) 0.5 mg PO TID [facility] Last Admin: 02/13/17 20:51 Dose: 0.5 mg Sodium Chloride (Saline Flush) 10 ml FLUSH ASDIRECTED PRN PRN Reason: Keep Vein Open Trazodone HCl (Trazodone) 50 mg PO BEDTIME [facility] Last Admin: 02/13/17 20:52 Dose: 50 mg Vancomycin HCl (Vancocin 125 Mg/2.5 Ml Soln) 125 mg PO QID [facility] Last Admin: 02/13/17 19:59 Dose: 125 mg Discontinued Medications Sodium Chloride (Normal Saline) 1,000 mls @ 999 mls/hr IV ONETIME ONE Stop: 02/13/17 17:43 Last Admin: 02/13/17 17:00 Dose: 999 mls/hr Dextrose/Water (Dextrose 5% In Water) 1,000 mls @ 50 mls/hr IV ASDIRECTED [facility] Non-Formulary Medication (Ferrous Gluconate [Ferrous Gluconate]) 324 mg PO DAILY [facility] Trazodone HCl (Trazodone) 50 mg PO BEDTIME PRN PRN Reason: Insomnia Vancomycin HCl (Pharmacy To Dose - Vancomycin) 1 dose .XX ASDIRECTED [facility] - Exam General: alert, cooperative, no acute distress HEENT: Other (mucous membranes slightly dry) Neck: supple, no thyromegaly. No: lymphadenopathy Lungs: Clear to auscultation, Normal respiratory effort Cardiovascular: Regular Rate, Regular Rhythm, No Murmurs Abdomen: bowel sounds present, soft, no tenderness, no distension Extremities: no edema, normal pulses Skin: warm, dry, intact - Problem List & Annotations (1) Dehydration SNOMED Code(s): 71925646 Code(s): E86.0 - DEHYDRATION Status: Acute Current Visit: Yes Annotation/Comment:: - Still appears dehydrated; however, need to be cautious with fluid resuscitation in the setting of her hypernatremia. - Since her vitals are stable, ok to continue with slow rehydration as discussed under hypernatremia below. (2) Hypernatremia SNOMED Code(s): 03639067 Code(s): E87.0 - HYPEROSMOLALITY AND HYPERNATREMIA Status: Acute Current Visit: Yes Annotation/Comment:: - Na back to 154. - Will need to be corrected slowly. - Continue D5w but increase rate to 75 cc/hr. - Recheck sodium this afternoon. (3) Acute kidney injury SNOMED Code(s): 03088988 Code(s): N17.9 - ACUTE KIDNEY FAILURE, UNSPECIFIED Status: Acute Current Visit: Yes Annotation/Comment:: - Creatinine is normally 0.6 so her elevation to 1.2 is quite significant. - Down to 1.1 this am. BUN also downtrending. - This is likely prerenal related to dehydration. No evidence of an alternative cause. - Will follow creatinine daily and investigate further if this does not improve with IV fluids. (4) Antibiotic-associated diarrhea SNOMED Code(s): 984304068 Code(s): T36.91XA - POISONING BY UNSP SYSTEMIC ANTIBIOTIC, ACCIDENTAL, INIT; K52.1 - TOXIC GASTROENTERITIS AND COLITIS Status: Acute Current Visit: Yes Annotation/Comment:: - Presumed to have c. difficile given recent use of antibiotics. - Testing is pending. - Patient meets criteria for treatment with both IV flagyl and PO vancomycin given WBC >35,000, elevated lactate, and MARTINA. - Once improving, will consider transitioning to PO vancomycin only vs. just transition to PO flagyl and vancomycin. - Will CT if she develops any abdominal pain or fever. (5) Leukocytosis SNOMED Code(s): 055316256, 872054271 Code(s): D72.829 - ELEVATED WHITE BLOOD CELL COUNT, UNSPECIFIED Status: Acute Current Visit: Yes Qualifiers: Leukocytosis type: unspecified Qualified Code(s): D72.829 - Elevated white blood cell count, unspecified Annotation/Comment:: - WBC pending this am. Likely has c. difficile as the etiology. No symptoms or objective findings (labs, CXR) to suggest alternative diagnosis. - Treatment for c. diff as above. - Recheck daily. (6) Hypothyroidism SNOMED Code(s): 52668255 Code(s): E03.9 - HYPOTHYROIDISM, UNSPECIFIED Status: Chronic Current Visit: Yes Qualifiers: Hypothyroidism type: acquired Qualified Code(s): E03.9 - Hypothyroidism, unspecified Annotation/Comment:: - Continue levothyroxine. (7) Anxiety disorder SNOMED Code(s): 015135862 Code(s): F41.9 - ANXIETY DISORDER, UNSPECIFIED Status: Chronic Priority: High Current Visit: No Annotation/Comment:: - Continue cymbalta and trazodone. (8) Chronic back pain SNOMED Code(s): 743267198 Code(s): M54.9 - DORSALGIA, UNSPECIFIED; G89.29 - OTHER CHRONIC PAIN Status : Chronic Current Visit: No Annotation/Comment:: - Continue cymbalta and gabapentin. (9) Dementia SNOMED Code(s): 33399376 Code(s): F03.90 - UNSPECIFIED DEMENTIA WITHOUT BEHAVIORAL DISTURBANCE Status: Chronic Priority: High Current Visit: No Annotation/Comment:: - Not on any medications. - Will treat any behavioral disturbance as indicated. (10) GERD (gastroesophageal reflux disease) SNOMED Code(s): 052035403 Code(s): K21.9 - GASTRO-ESOPHAGEAL REFLUX DISEASE WITHOUT ESOPHAGITIS Status: Chronic Current Visit: Yes Qualifiers: Esophagitis presence: esophagitis presence not specified Qualified Code(s) : K21.9 - Gastro-esophageal reflux disease without esophagitis Annotation/Comment:: - Hold omeprazole given association with c. diff infection. - If she develops any GERD symptoms, will start an H2 lucian instead. (11) Restless leg syndrome SNOMED Code(s): 13795981 Code(s): G25.81 - RESTLESS LEGS SYNDROME Status: Chronic Current Visit: Yes Annotation/Comment:: - Continue requip. - Problem List Review Problem List Initiated/Reviewed/Updated: Yes - My Orders Last 24 Hours: My Active Orders 02/13/17 19:41 Notify Provider Vital Signs [RC] ASDIRECTED Oxygen Therapy [RC] .PRN Up With Assistance [RC] ASDIRECTED VTE/DVT Education [RC] PER UNIT ROUTINE Vital Signs [RC] 06,10,14,18,22,02 Anticoagulation Contraindications VTE [AST] Per Unit Routine Resuscitation Status Routine 02/13/17 19:47 Sequential Compression Device [OM.PC] Per Unit Routine 02/13/17 19:49 Antiembolic Devices [RC] 08,20 02/13/17 19:50 Acetaminophen [Tylenol] 325 mg PO Q4H PRN 02/13/17 20:00 Gabapentin [Neurontin] 100 mg PO BID rOPINIRole [Requip] 0.5 mg PO TID traZODone 50 mg PO BEDTIME 02/13/17 20:15 Potassium Chloride [Klor-Con M20] 20 meq PO BIDMEALS 02/13/17 22:15 Dextrose 5% in Water 1,000 ml IV ASDIRECTED 02/13/17 Breakfast Regular Diet [DIET] 02/14/17 07:00 Levothyroxine 25 mcg PO ACBREAKFAST 02/14/17 07:40 CBC WITH AUTO DIFF [HEME] Routine 02/14/17 08:00 DULoxetine [Cymbalta] 60 mg PO DAILY 02/14/17 14:00 BASIC METABOLIC PANEL,BMP [CHEM] Timed - Assessment Assessment:: 76 yo female admitted with dehydration, hypernatremia, and MARTINA secondary to diarrhea presumed to be c. difficile infection. Stable from yesterday symptomatically but labs back thus far are slightly improved. - Plan Plan:: 7Will treat with IV flagyl and PO vancomycin based on severity of infection. Hold home stool regimen and prilosec. Will hold magnesium as well and replete IV as indicated. Continue potassium supplementation. Otherwise, see details under problems above. SCD's for VTE prophylaxis until Hgb is proven stable. Patient is admitted under acute. I anticipate at least 72 hours of hospitalization. Patient wishes to be DNR/DNI. Also discussed with her son, who is POA, and he agrees.
--- NOTE | 2017-02-14 08:39 | PCM.SN ---
- Free Text/Narrative Note: CBC back and reviewed. Hgb is likely dilutional. Will recheck tomorrow. No pharmacologic VTE prophylaxis until this is proved stable. WBC minimally down from yesterday. No changes to antibiotics. Otherwise, see separate progress note from today.
[2017-02-14] MEDS: DULoxetine 60 MG Cap PO SCH (09:05)
[2017-02-14] MEDS: Gabapentin 100 MG Cap PO SCH ×2 (09:05→20:19)
[2017-02-14] MEDS: Potassium Chloride 20 MEQ Tab.ER PO SCH ×3 (09:06→17:03)
[2017-02-14] MEDS: Vancomycin 125 MG/2.5 ML Oral Solution 2.5 ML UD Cup PO SCH ×4 (09:06→20:20)
[2017-02-14] MEDS: rOPINIRole 0.5 MG Tab PO SCH ×3 (09:06→20:19)
[2017-02-14] MEDS ORDERED: Sodium Chloride 0.9% 250 ML IV SCH ×2 (10:45→11:00)
[2017-02-14] MEDS: traZODone 50 MG Tab PO SCH (20:19)
[2017-02-15] MEDS: metroNIDAZOLE/Normal Saline 500 MG in Premix Bag 1 BAG IV SCH ×2 (02:11→10:52)
[2017-02-15] MEDS: Dextrose 5% in Water 1,000 ML IV SCH (04:45)
[2017-02-15] MEDS: Levothyroxine 25 MCG Tab PO SCH (06:33)
[2017-02-15] MEDS: rOPINIRole 0.5 MG Tab PO SCH ×3 (08:04→11:03)
[2017-02-15] MEDS: Gabapentin 100 MG Cap PO SCH ×2 (08:04→08:13)
[2017-02-15] MEDS: Vancomycin 125 MG/2.5 ML Oral Solution 2.5 ML UD Cup PO SCH ×3 (08:04→11:03)
[2017-02-15] MEDS: Potassium Chloride 20 MEQ Tab.ER PO SCH ×2 (08:05→08:13)
[2017-02-15] MEDS: DULoxetine 60 MG Cap PO SCH ×2 (08:05→08:13)
[2017-02-15] MEDS ORDERED: Dextrose 5% in Water with KCl 1,000 ML IV SCH (09:30)
--- NOTE | 2017-02-15 10:06 | PCM.PN ---
- General Info Date of Service: 02/15/17 Subjective Update: No acute events overnight. Patient is less alert this morning but will still shake her head yes and no to answer questions. She denies abdominal pain and states she still feels poorly (similar to previous). - Review of Systems General: Reports: No Symptoms HEENT: Reports: no symptoms Pulmonary: Reports: no symptoms Cardiovascular: Reports: No Symptoms Gastrointestinal: Reports: No symptoms Genitourinary: Reports: no symptoms Musculoskeletal: Reports: no symptoms Skin: Reports: no symptoms Neurological: Reports: No Symptoms - Patient Data Vitals - most recent: Last Vital Signs Temp 37.7 C 02/15/17 09:47 Pulse 105 H 02/15/17 09:47 Resp 28 H 02/15/17 09:47 BP 115/77 02/15/17 09:47 Pulse Ox 97 02/15/17 09:47 Weight - most recent: 50.122 kg I&O - last 24 hours: Intake & Output 02/14/17 02/15/17 02/15/17 22:59 06:59 14:59 Intake Total 488 1066 0 Balance 488 1066 0 Lab Results last 24 hrs: Laboratory Results - last 24 hr 02/14/17 02/14/17 02/15/17 Range/Units 07:40 14:04 07:34 WBC 27.4 H* (4.0-10.0) x10^3/uL RBC 4.05 (4.00-5.50) x10^6/uL Hgb 12.0 (12.0-16.0) g/dL Hct 36.9 (33.0-47.0) % MCV 91.1 (78.0-93.0) fL MCH 29.6 (26.0-32.0) pg MCHC 32.5 (32.0-36.0) g/dL RDW Coeff of Randell 16.0 H (10.0-15.0) % Plt Count 184 (130-400) x10^3/uL Add Manual Diff Yes Neutrophils % (Manual) 94 H (50-80) % Band Neutrophils % 3 (0-6) % Lymphocytes % (Manual) 1 L (25-50) % Monocytes % (Manual) 1 L (2-11) % Eosinophils % (Manual) 1 (0-4) % Platelet Estimate Adequate Anisocytosis 1+ slight H Sodium 154 H (136-145) mmol/L Potassium 3.7 (3.5-5.1) mmol/L Chloride 121 H (98-107) mmol/L Carbon Dioxide 25 (21-32) mmol/L BUN 38 H (7-18) mg/dL Creatinine 1.1 H (0.55-1.02) mg/dL Est Cr Clr Drug Dosing 34.41 mL/min Estimated GFR (MDRD) 48 Glucose 143 H (74-106) mg/dL Calcium 7.9 L (8.5-10.1) mg/dL Magnesium 1.9 (1.8-2.4) mg/dL C-Reactive Protein (<=0.9) mg/dL B-Natriuretic Peptide (<=450) pg/mL 02/15/17 Range/Units 07:34 WBC (4.0-10.0) x10^3/uL RBC (4.00-5.50) x10^6/uL Hgb (12.0-16.0) g/dL Hct (33.0-47.0) % MCV (78.0-93.0) fL MCH (26.0-32.0) pg MCHC (32.0-36.0) g/dL RDW Coeff of Randell (10.0-15.0) % Plt Count (130-400) x10^3/uL Add Manual Diff Neutrophils % (Manual) (50-80) % Band Neutrophils % (0-6) % Lymphocytes % (Manual) (25-50) % Monocytes % (Manual) (2-11) % Eosinophils % (Manual) (0-4) % Platelet Estimate Anisocytosis Sodium 148 H (136-145) mmol/L Potassium 3.2 L (3.5-5.1) mmol/L Chloride 116 H (98-107) mmol/L Carbon Dioxide 22 (21-32) mmol/L BUN 32 H (7-18) mg/dL Creatinine 1.1 H (0.55-1.02) mg/dL Est Cr Clr Drug Dosing 34.41 mL/min Estimated GFR (MDRD) 48 Glucose 165 H (74-106) mg/dL Calcium 7.6 L (8.5-10.1) mg/dL Magnesium (1.8-2.4) mg/dL C-Reactive Protein 10.6 H (<=0.9) mg/dL B-Natriuretic Peptide 1248 H (<=450) pg/mL Med Orders - Current: Current Medications Acetaminophen (Tylenol) 325 mg PO Q4H PRN PRN Reason: pain or fever Last Admin: 02/15/17 05:45 Dose: 325 mg Duloxetine HCl (Cymbalta) 60 mg PO DAILY [facility] Last Admin: 02/15/17 08:13 Dose: Not Given Gabapentin (Neurontin) 100 mg PO BID [facility] Last Admin: 02/15/17 08:13 Dose: Not Given Metronidazole 500 mg/ Premix 100 mls @ 100 mls/hr IV Q8H [facility] Last Admin: 02/15/17 02:11 Dose: 100 mls/hr Sodium Chloride (Normal Saline) 250 mls @ 250 mls/hr IV ASDIRECTED [facility] Last Admin: 02/14/17 10:36 Dose: 250 mls/hr Potassium Chloride/Dextrose (D5w With 20 Meq Kcl) 1,000 mls @ 75 mls/hr IV ASDIRECTED [facility] Levothyroxine Sodium (Levothyroxine) 25 mcg PO ACBREAKFAST [facility] Last Admin: 02/15/17 06:33 Dose: 25 mcg Potassium Chloride (Klor-Con M20) 20 meq PO BIDMEALS [facility] Last Admin: 02/15/17 08:13 Dose: Not Given Ropinirole HCl (Requip) 0.5 mg PO TID [facility] Last Admin: 02/15/17 08:13 Dose: Not Given Sodium Chloride (Saline Flush) 10 ml FLUSH ASDIRECTED PRN PRN Reason: Keep Vein Open Trazodone HCl (Trazodone) 50 mg PO BEDTIME [facility] Last Admin: 02/14/17 20:19 Dose: 50 mg Vancomycin HCl (Vancocin 125 Mg/2.5 Ml Soln) 125 mg PO QID [facility] Last Admin: 02/15/17 08:04 Dose: 125 mg Discontinued Medications Sodium Chloride (Normal Saline) 1,000 mls @ 999 mls/hr IV ONETIME ONE Stop: 02/13/17 17:43 Last Admin: 02/13/17 17:00 Dose: 999 mls/hr Dextrose/Water (Dextrose 5% In Water) 1,000 mls @ 50 mls/hr IV ASDIRECTED [facility] Dextrose/Water (Dextrose 5% In Water) 1,000 mls @ 100 mls/hr IV ASDIRECTED [facility] Last Admin: 02/15/17 04:45 Dose: 50 mls/hr Non-Formulary Medication (Ferrous Gluconate [Ferrous Gluconate]) 324 mg PO DAILY [facility] Last Admin: 02/14/17 09:07 Dose: Not Given Trazodone HCl (Trazodone) 50 mg PO BEDTIME PRN PRN Reason: Insomnia Vancomycin HCl (Pharmacy To Dose - Vancomycin) 1 dose .XX ASDIRECTED [facility] - Exam General: no acute distress, other (drowsy but does awake to voice) HEENT: Mucous membr. moist/pink Neck: supple, no thyromegaly. No: lymphadenopathy Lungs: Clear to auscultation, Normal respiratory effort Cardiovascular: Regular Rate, Regular Rhythm, No Murmurs Abdomen: bowel sounds present, soft, no tenderness, no distension Extremities: no edema, normal pulses Skin: warm, dry, intact - Problem List & Annotations (1) Dehydration SNOMED Code(s): 98361926 Code(s): E86.0 - DEHYDRATION Status: Acute Current Visit: Yes Annotation/Comment:: - Hydration status is improved as evidenced by her mucous membranes and adequate urine output. - Vitals also remain stable. (2) Hypernatremia SNOMED Code(s): 55372656 Code(s): E87.0 - HYPEROSMOLALITY AND HYPERNATREMIA Status: Acute Current Visit: Yes Annotation/Comment:: - Na to 148. - Continue D5w but will add potassium and decrease rate to 75 cc/hr. - Recheck sodium tomorrow am. (3) Acute kidney injury SNOMED Code(s): 00040308 Code(s): N17.9 - ACUTE KIDNEY FAILURE, UNSPECIFIED Status: Acute Current Visit: Yes Annotation/Comment:: - Creatinine is normally 0.6 so her elevation to 1.2 is quite significant. - Stable at 1.1 this am. BUN continues to downtrend. - This is likely prerenal related to dehydration. No evidence of an alternative cause. - Will follow creatinine daily and investigate further if this does not improve with IV fluids. (4) Antibiotic-associated diarrhea SNOMED Code(s): 005688297 Code(s): T36.91XA - POISONING BY UNSP SYSTEMIC ANTIBIOTIC, ACCIDENTAL, INIT; K52.1 - TOXIC GASTROENTERITIS AND COLITIS Status: Acute Current Visit: Yes Annotation/Comment:: - Presumed to have c. difficile given recent use of antibiotics. - Testing is pending. - Patient meets criteria for treatment with both IV flagyl and PO vancomycin given WBC >35,000, elevated lactate, and MARTINA. - Once improving, will consider transitioning to PO vancomycin only vs. just transition to PO flagyl and vancomycin. - Will CT if she develops any abdominal pain or fever. (5) Leukocytosis SNOMED Code(s): 783510053, 469719889 Code(s): D72.829 - ELEVATED WHITE BLOOD CELL COUNT, UNSPECIFIED Status: Acute Current Visit: Yes Qualifiers: Leukocytosis type: unspecified Qualified Code(s): D72.829 - Elevated white blood cell count, unspecified Annotation/Comment:: - WBC slightly downtrending this am. Likely has c. difficile as the etiology. No symptoms or objective findings (labs, CXR) to suggest alternative diagnosis. - Treatment for c. diff as above. - Recheck daily. (6) Hypothyroidism SNOMED Code(s): 70338404 Code(s): E03.9 - HYPOTHYROIDISM, UNSPECIFIED Status: Chronic Current Visit: Yes Qualifiers: Hypothyroidism type: acquired Qualified Code(s): E03.9 - Hypothyroidism, unspecified Annotation/Comment:: - Continue levothyroxine. (7) Anxiety disorder SNOMED Code(s): 606344946 Code(s): F41.9 - ANXIETY DISORDER, UNSPECIFIED Status: Chronic Priority: High Current Visit: No Annotation/Comment:: - Continue cymbalta and trazodone. (8) Chronic back pain SNOMED Code(s): 686798877 Code(s): M54.9 - DORSALGIA, UNSPECIFIED; G89.29 - OTHER CHRONIC PAIN Status : Chronic Current Visit: No Annotation/Comment:: - Continue cymbalta and gabapentin. (9) Dementia SNOMED Code(s): 62126341 Code(s): F03.90 - UNSPECIFIED DEMENTIA WITHOUT BEHAVIORAL DISTURBANCE Status: Chronic Priority: High Current Visit: No Annotation/Comment:: - Not on any medications. - Will treat any behavioral disturbance as indicated. (10) GERD (gastroesophageal reflux disease) SNOMED Code(s): 888725289 Code(s): K21.9 - GASTRO-ESOPHAGEAL REFLUX DISEASE WITHOUT ESOPHAGITIS Status: Chronic Current Visit: Yes Qualifiers: Esophagitis presence: esophagitis presence not specified Qualified Code(s) : K21.9 - Gastro-esophageal reflux disease without esophagitis Annotation/Comment:: - Hold omeprazole given association with c. diff infection. - If she develops any GERD symptoms, will start an H2 lucian instead. (11) Restless leg syndrome SNOMED Code(s): 52449498 Code(s): G25.81 - RESTLESS LEGS SYNDROME Status: Chronic Current Visit: Yes Annotation/Comment:: - Continue requip. - Problem List Review Problem List Initiated/Reviewed/Updated: Yes - My Orders Last 24 Hours: My Active Orders 02/14/17 11:00 Sodium Chloride 0.9% [Normal Saline] 250 ml IV ASDIRECTED 02/15/17 09:30 Dextrose 5% in Water with KCl [D5W with 20 mEq KCl] 1,000 ml IV ASDIRECTED - Assessment Assessment:: 76 yo female admitted with dehydration, hypernatremia, and MARTINA secondary to diarrhea presumed to be c. difficile infection. Labs are improved. Less alert this am but otherwise unchanged. - Plan Plan:: Will treat with IV flagyl and PO vancomycin based on severity of infection. Hold home stool regimen and prilosec. Will hold magnesium as well and replete IV as indicated. Continue potassium supplementation. Otherwise, see details under problems above. SCD's for VTE prophylaxis until Hgb is proven stable. Patient is admitted under acute. I anticipate at least 72 hours of hospitalization. Patient wishes to be DNR/DNI. Also discussed with her son, who is POA, and he agrees. Her son will be coming in this morning and we will see if this behavior is normal for her or not. Will likely get a CT head today. If this is negative, would continue current treatment plan with the exception of adding lovenox for VTE prophylaxis.
[2017-02-15] MEDS ORDERED: D5 1/2 NS w/ 20 mEq/L KCl 1,000 ML IV SCH (10:30)
[2017-02-15 13:50] VITALS: BP 126/80
--- NOTE | 2017-02-15 14:44 | PCM.DCSUM1 ---
Discharge Summary - Hospital Course Brief History: Mrs. Lin is a 76 yo female who was admitted with dehydration, hypernatremia, and MARTINA secondary to diarrhea that is presumed to be c. difficile based on recent antibiotic use. - Discharge Data Discharge Date: 02/15/17 Discharge Disposition: DC/Tfer to Acute Hospital 02 Condition: Good - Discharge Diagnosis/Problem(s) (1) Dehydration SNOMED Code(s): 53529852 ICD Code: E86.0 - DEHYDRATION Status: Acute Current Visit: Yes Problem Details: Her hydration status has improved with IV fluids, initially bolused and then provided at a maintenance rate. (2) Hypernatremia SNOMED Code(s): 25404138 ICD Code: E87.0 - HYPEROSMOLALITY AND HYPERNATREMIA Status: Acute Current Visit: Yes Problem Details: Was hypernatremic to 154 on admission. She has been getting D5W with improvement in her sodium to 148 today. (3) Acute kidney injury SNOMED Code(s): 18327731 ICD Code: N17.9 - ACUTE KIDNEY FAILURE, UNSPECIFIED Status: Acute Current Visit: Yes Problem Details: Creatinine is normally 0.6 so her elevation to 1.2 is quite significant. Did improve slightly to 1.1 but has been stable there. BUN has continued to downtrend. This is likely prerenal related to dehydration. No evidence of an alternative cause. (4) Antibiotic-associated diarrhea SNOMED Code(s): 722677546 ICD Code: T36.91XA - POISONING BY UNSP SYSTEMIC ANTIBIOTIC, ACCIDENTAL, INIT ; K52.1 - TOXIC GASTROENTERITIS AND COLITIS Status: Acute Current Visit: Yes Problem Details: Her only symptomatic complaint on presentation was diarrhea. She is presumed to have c. difficile given recent use of antibiotics but her testing is still pending. Patient meets criteria for treatment with both IV flagyl and PO vancomycin given WBC >35,000, elevated lactate, and MARTINA. Her labs have been improving as has her diarrhea. However, she is otherwise not improved and is having increased sedation today. She has not had a CT scan due to absence of abdominal pain or fever. Given the fact that her mental status has worsened, I did discuss with family whether they wanted her transferred to [place] for further evaluation and management. They would be interested in this; therefore, I contacted [facility] and they are willing to accept this patient. She will be transferred by ground ambulance. (5) Leukocytosis SNOMED Code(s): 513383021, 049046182 ICD Code: D72.829 - ELEVATED WHITE BLOOD CELL COUNT, UNSPECIFIED Status: Acute Current Visit: Yes Problem Details: WBC slightly downtrending this am. Likely has c. difficile as the etiology. No symptoms or objective findings ( labs, CXR) to suggest alternative diagnosis. Treatment for c. diff as above. Qualifiers: Leukocytosis type: unspecified Qualified Code(s): D72.829 - Elevated white blood cell count, unspecified (6) Hypothyroidism SNOMED Code(s): 44985336 ICD Code: E03.9 - HYPOTHYROIDISM, UNSPECIFIED Status: Chronic Current Visit: Yes Problem Details: Levothyroxine was continued. Qualifiers: Hypothyroidism type: acquired Qualified Code(s): E03.9 - Hypothyroidism, unspecified (7) Anxiety disorder SNOMED Code(s): 626201142 ICD Code: F41.9 - ANXIETY DISORDER, UNSPECIFIED Status: Chronic Priority : High Current Visit: No Problem Details: Cymbalta and trazodone continued. (8) Chronic back pain SNOMED Code(s): 679408301 ICD Code: M54.9 - DORSALGIA, UNSPECIFIED; G89.29 - OTHER CHRONIC PAIN Status: Chronic Current Visit: No Problem Details: Cymbalta and gabapentin continued. (9) Dementia SNOMED Code(s): 77498168 ICD Code: F03.90 - UNSPECIFIED DEMENTIA WITHOUT BEHAVIORAL DISTURBANCE Status: Chronic Priority: High Current Visit: No Problem Details: Not on any medications. Will treat any behavioral disturbance as indicated. (10) GERD (gastroesophageal reflux disease) SNOMED Code(s): 522814486 ICD Code: K21.9 - GASTRO-ESOPHAGEAL REFLUX DISEASE WITHOUT ESOPHAGITIS Status: Chronic Current Visit: Yes Problem Details: Omeprazole was held given association with c. diff infection. Qualifiers: Esophagitis presence: esophagitis presence not specified Qualified Code(s) : K21.9 - Gastro-esophageal reflux disease without esophagitis (11) Restless leg syndrome SNOMED Code(s): 50120208 ICD Code: G25.81 - RESTLESS LEGS SYNDROME Status: Chronic Current Visit: Yes Problem Details: Requip continued. - Patient Summary/Data Operative Procedure(s) Performed: none Complications: altered mental status Consults: none Labs Pending at D/C: none Recommended Follow-up Testing/Procedures: none Planned Operative Procedure(s) after DC: none Hospital Course: The patient's diarrhea and labs improved; however, on hospital day #2, it was noted that her mental status had worsened. CT head was done and negative for any acute findings. Labs generally done for evaluation of this are either improved or normal. Therefore, it was felt that she could benefit from transfer to [place] for faster c. difficile results as well as additional evaluation and management as indicated. I spoke with the hospitalist who has accepted the patient for transfer. She will go by ambulance. - Patient Instructions Diet: Usual Diet as Tolerated Driving: Do Not Drive Showering/Bathing: May Shower - Discharge Plan Home Medications: Home Meds Acetaminophen [Tylenol] 1 tab PO Q4H PRN 08/01/14 [History] traZODone 50 mg PO BEDTIME PRN #30 tablet 12/04/14 [Rx] rOPINIRole HCl [Requip] 0.5 mg PO TID 02/04/16 [History] DULoxetine [Cymbalta] 60 mg PO DAILY 12/09/16 [History] Gabapentin [Neurontin] 100 mg PO BID 12/09/16 [History] Levothyroxine 25 mcg PO ACBREAKFAST 12/09/16 [History] Potassium Chloride 20 meq PO BID 12/09/16 [History] Vancomycin [Vancocin 125 MG/2.5 ML Soln] 125 mg PO QID cup 02/15/17 [Rx] metroNIDAZOLE/Normal Saline [Flagyl 500 MG in NS 100 ML] 500 mg IV Q8H bag 04/26 [Rx] Forms: ED Department Discharge Referrals: Sandy Salcedo DO [Primary Care Provider] - - Discharge Summary/Plan Comment DC Time >30 min.: No - General Info Subjective Update: Spoke with patient's family this afternoon. This behavior is highly atypical for the patient and her mental status is worse than on initial presentation to the ED 2 days ago. Therefore, she will be transferred to [place] as documented elsewhere. - Patient Data Vitals - Most Recent: Last Vital Signs Temp 37.3 C 02/15/17 13:49 Pulse 85 02/15/17 13:49 Resp 22 H 07/09/17 13:49 BP 126/80 02/15/17 13:49 Pulse Ox 97 02/15/17 13:49 Weight - Most Recent: 50.122 kg I&O - Last 24 hours: Intake & Output 02/14/17 02/15/17 02/15/17 22:59 06:59 14:59 Intake Total 488 1066 612 Balance 488 1066 612 Lab Results - Last 24 hrs: Laboratory Results - last 24 hr 02/14/17 02/15/17 02/15/17 Range/Units 07:40 07:34 07:34 WBC 27.4 H* (4.0-10.0) x10^3/uL RBC 4.05 (4.00-5.50) x10^6/uL Hgb 12.0 (12.0-16.0) g/dL Hct 36.9 (33.0-47.0) % MCV 91.1 (78.0-93.0) fL MCH 29.6 (26.0-32.0) pg MCHC 32.5 (32.0-36.0) g/dL RDW Coeff of Randell 16.0 H (10.0-15.0) % Plt Count 184 (130-400) x10^3/uL Add Manual Diff Yes Neutrophils % (Manual) 94 H (50-80) % Band Neutrophils % 3 (0-6) % Lymphocytes % (Manual) 1 L (25-50) % Monocytes % (Manual) 1 L (2-11) % Eosinophils % (Manual) 1 (0-4) % Platelet Estimate Adequate Anisocytosis 1+ slight H Sodium 154 H 148 H (136-145) mmol/L Potassium 3.7 3.2 L (3.5-5.1) mmol/L Chloride 121 H 116 H (98-107) mmol/L Carbon Dioxide 25 22 (21-32) mmol/L BUN 38 H 32 H (7-18) mg/dL Creatinine 1.1 H 1.1 H (0.55-1.02) mg/dL Est Cr Clr Drug Dosing 34.41 34.41 mL/min Estimated GFR (MDRD) 48 48 Glucose 143 H 165 H (74-106) mg/dL Calcium 7.9 L 7.6 L (8.5-10.1) mg/dL C-Reactive Protein 10.6 H (<=0.9) mg/dL B-Natriuretic Peptide 1248 H (<=450) pg/mL Med Orders - Current: Current Medications Acetaminophen (Tylenol) 325 mg PO Q4H PRN PRN Reason: pain or fever Last Admin: 02/15/17 05:45 Dose: 325 mg Duloxetine HCl (Cymbalta) 60 mg PO DAILY [facility] Last Admin: 02/15/17 08:13 Dose: Not Given Gabapentin (Neurontin) 100 mg PO BID [facility] Last Admin: 02/15/17 08:13 Dose: Not Given Metronidazole 500 mg/ Premix 100 mls @ 100 mls/hr IV Q8H [facility] Last Admin: 02/15/17 10:52 Dose: 100 mls/hr Sodium Chloride (Normal Saline) 250 mls @ 250 mls/hr IV ASDIRECTED [facility] Last Admin: 02/14/17 10:36 Dose: 250 mls/hr Potassium Chloride/Dextrose/Sod Cl (D5 1/2 Ns W/ 20 Meq/L Kcl) 1,000 mls @ 100 mls/hr IV ASDIRECTED [facility] Last Admin: 02/15/17 12:12 Dose: 100 mls/hr Levothyroxine Sodium (Levothyroxine) 25 mcg PO ACBREAKFAST [facility] Last Admin: 02/15/17 06:33 Dose: 25 mcg Potassium Chloride (Klor-Con M20) 20 meq PO BIDMEALS [facility] Last Admin: 02/15/17 08:13 Dose: Not Given Ropinirole HCl (Requip) 0.5 mg PO TID [facility] Last Admin: 02/15/17 11:03 Dose: Not Given Sodium Chloride (Saline Flush) 10 ml FLUSH ASDIRECTED PRN PRN Reason: Keep Vein Open Trazodone HCl (Trazodone) 25 mg PO BEDTIME [facility] Vancomycin HCl (Vancocin 125 Mg/2.5 Ml Soln) 125 mg PO QID [facility] Last Admin: 02/15/17 11:03 Dose: Not Given Discontinued Medications Sodium Chloride (Normal Saline) 1,000 mls @ 999 mls/hr IV ONETIME ONE Stop: 02/13/17 17:43 Last Admin: 02/13/17 17:00 Dose: 999 mls/hr Dextrose/Water (Dextrose 5% In Water) 1,000 mls @ 50 mls/hr IV ASDIRECTED [facility] Dextrose/Water (Dextrose 5% In Water) 1,000 mls @ 100 mls/hr IV ASDIRECTED [facility] Last Admin: 02/15/17 04:45 Dose: 50 mls/hr Potassium Chloride/Dextrose (D5w With 20 Meq Kcl) 1,000 mls @ 75 mls/hr IV ASDIRECTED [facility] Non-Formulary Medication (Ferrous Gluconate [Ferrous Gluconate]) 324 mg PO DAILY [facility] Last Admin: 02/14/17 09:07 Dose: Not Given Trazodone HCl (Trazodone) 50 mg PO BEDTIME PRN PRN Reason: Insomnia Trazodone HCl (Trazodone) 50 mg PO BEDTIME [facility] Last Admin: 02/14/17 20:19 Dose: 50 mg Vancomycin HCl (Pharmacy To Dose - Vancomycin) 1 dose .XX ASDIRECTED [facility] *Q Meaningful Use (DIS) - VTE *Q VTE Criteria *Q: VTE Anticoagulation Contraindications: Med/TX not Indicated/Need - Stroke *Q Stroke Criteria *Q: - AMI *Q AMI Criteria *Q:
[2017-02-15] MEDS ORDERED: traZODone 50 MG Tab PO SCH (20:00)
== END 2017-02-15 15:45 | disposition short-term general hospital (02) | DRG 372 ==
LOC: VM.ED 16:18 → VM.MS 18:58
PROVIDERS: ADMIT Family Medicine; ATTEND Family Medicine
DX: A04.7 Enterocolitis due to Clostridium difficile (principal); N17.9 Acute kidney failure, unspecified; E87.0 Hyperosmolality and hypernatremia; K52.1 Toxic gastroenteritis and colitis; E86.0 Dehydration; F03.90 Unspecified dementia, unspecified severity, without behavioral disturbance, psychotic disturbance, mood disturbance, and anxiety; E03.9 Hypothyroidism, unspecified; I73.9 Peripheral vascular disease, unspecified; D72.829 Elevated white blood cell count, unspecified; T36.95XA Adverse effect of unspecified systemic antibiotic, initial encounter; Z66 Do not resuscitate; Y92.009 Unspecified place in unspecified non-institutional (private) residence as the place of occurrence of the external cause; R41.82 Altered mental status, unspecified; R19.7 Diarrhea, unspecified; K21.9 Gastro-esophageal reflux disease without esophagitis; F32.9 Major depressive disorder, single episode, unspecified; F41.9 Anxiety disorder, unspecified; K59.09 Other constipation; M54.9 Dorsalgia, unspecified; G89.29 Other chronic pain; M19.90 Unspecified osteoarthritis, unspecified site; G25.81 Restless legs syndrome; Z87.440 Personal history of urinary (tract) infections
CPT/HCPCS: 36415; 71010; 80053; 81001; 82803; 83605; 83735; 83880; 84100; 85025; 86140; 87040 ×2; 93005; 96361; 96365; 99285; J7030; 70450; 80048; 87177; 87209; 87328; 87329; 87493; 94760; A9270-GY; J3480; J7050; J7060

== ENCOUNTER 2017-03-20 15:08 | Emergency (ER) | payer MEDICARE, MEDICAID ==
--- NOTE | 2017-03-20 15:57 | EDM.PDOC ---
ED HPI GENERAL MEDICAL PROBLEM - General Chief Complaint: Gastrointestinal Problem Stated Complaint: Diarrhea; Weakness Time Seen by Provider: 03/20/17 15:12 Source of Information: Reports: Patient, Longterm Records, RN, RN Notes Reviewed History Limitations: Reports: No Limitations - History of Present Illness INITIAL COMMENTS - FREE TEXT/NARRATIVE: Patient is brought to the ED at [facility] via local van for weakness and diarrhea. History is obtained from NH staff and patient's PCP. Patient has a long-standing history of C-diff infection the stems from antibiotics use. She was hospitalized for a time recently for the same complaints. group home staff states symptoms seems to be getting worse. Patient apparently has been refusing to take any antibiotics. NH staff state the patient have been refusing fluids. Duration: Chronic - Related Data Allergies Allergy/AdvReac Type Severity Reaction Status Date / Time No Known Allergies Allergy Verified 02/13/17 16:42 Home Meds: Home Meds Acetaminophen [Tylenol] 325 mg PO Q4H PRN 08/01/14 [History] traZODone 50 mg PO BEDTIME PRN #30 tablet 12/04/14 [Rx] rOPINIRole HCl [Requip] 0.5 mg PO TID 02/04/16 [History] Gabapentin [Neurontin] 100 mg PO BID 12/09/16 [History] Levothyroxine 25 mcg PO ACBREAKFAST 12/09/16 [History] Potassium Chloride 20 meq PO BID 12/09/16 [History] Vancomycin [Vancocin 125 MG/2.5 ML Soln] 125 mg PO QID cup 02/15/17 [Rx] metroNIDAZOLE/Normal Saline [Flagyl 500 MG in NS 100 ML] 500 mg IV Q8H bag 04/26 [Rx] DULoxetine HCl [Duloxetine HCl] 60 mg PO DAILY 02/16/17 [History] Past Medical History HEENT History: Reports: None Cardiovascular History: Reports: None Respiratory History: Reports: None Gastrointestinal History: Reports: Chronic Constipation, GERD Genitourinary History: Reports: UTI, Recurrent Musculoskeletal History: Reports: Back Pain, Chronic, Osteoarthritis, Osteoporosis Other Musculoskeletal History: disorder of bone, unspecified Neurological History: Reports: Other (See Below) Other Neuro History: unspecified dementia without behavioral disturbance Psychiatric History: Reports: Anxiety, Dementia, Depression, Mood Swings, Other (See Below) Other Psychiatric History: restless leg syndrome Endocrine/Metabolic History: Reports: Hypothyroidism Hematologic History: Reports: Anemia Immunologic History: Reports: None Oncologic (Cancer) History: Reports: None Dermatologic History: Reports: None - Infectious Disease History Infectious Disease History: Reports: None Social & Family History - Family History Family Medical History: Noncontributory - Tobacco Use Smoking Status *Q: Former Smoker Years of Tobacco use: 60 Second Hand Smoke Exposure: No - Alcohol Use Days Per Week of Alcohol Use: 0 - Recreational Drug Use Recreational Drug Use: No - Living Situation & Occupation Living situation: Reports: , Extended Care Facility Occupation: Retired ED ROS GENERAL - Review of Systems Review Of Systems: See Below Constitutional: Reports: Weakness, Decreased Appetite, Weight Loss. Denies: Fever, Chills Respiratory: Denies: Shortness of Breath, Cough Cardiovascular: Denies: Chest Pain, Palpitations Skin: Reports: No Symptoms Neurological: Reports: No Symptoms ED EXAM, GI/ABD - Physical Exam Exam: See Below Exam Limited By: No Limitations General Appearance: Alert, No Apparent Distress, Thin, Cachetic Respiratory/Chest: No Respiratory Distress, Lungs Clear, Normal Breath Sounds Cardiovascular: Regular Rate, Rhythm GI/Abdominal Exam: Normal Bowel Sounds, Soft, Non-Tender Neurological: Alert, Slow to Respond Skin Exam: Dry, Intact, No Rash, Other (Fragile) Course - Orders/Labs/Meds Orders: Active Orders 24 hr Category Date Time Status C DIFFICILE TOXIN BY PCR [MREF] Stat Lab 03/20/17 15:51 Received UA W/MICROSCOPIC [URIN] Stat Lab 03/20/17 15:50 Results Sodium Chloride 0.9% [Normal Saline] 1,000 ml Med 03/20/17 16:09 Ordered IV ONETIME Sodium Chloride 0.9% [Saline Flush] Med 03/20/17 16:08 Ordered 10 ml FLUSH ASDIRECTED PRN Peripheral IV Insertion Adult [OM.PC] Routine Oth 03/20/17 16:08 Ordered Medication Orders Sodium Chloride (Normal Saline) 1,000 mls @ 999 mls/hr IV ONETIME ONE Stop: 03/20/17 17:09 Sodium Chloride (Saline Flush) 10 ml FLUSH ASDIRECTED PRN PRN Reason: Keep Vein Open Labs: Laboratory Tests 03/20/17 03/20/17 03/20/17 Range/Units 15:37 15:37 15:37 WBC 9.9 (4.0-10.0) x10^3/uL RBC 3.67 L (4.00-5.50) x10^6/uL Hgb 11.0 L (12.0-16.0) g/dL Hct 34.4 (33.0-47.0) % MCV 93.7 H (78.0-93.0) fL MCH 30.0 (26.0-32.0) pg MCHC 32.0 (32.0-36.0) g/dL RDW Coeff of Randell 15.8 H (10.0-15.0) % Plt Count 342 D (130-400) x10^3/uL Neut % (Auto) 72.3 (50.0-80.0) % Lymph % (Auto) 17.0 L (25.0-50.0) % [place] % (Auto) 9.9 (2.0-11.0) % Eos % (Auto) 0.6 (0.0-4.0) % Baso % (Auto) 0.2 (0.2-1.2) % Sodium 137 D (136-145) mmol/L Potassium 4.0 (3.5-5.1) mmol/L Chloride 100 D (98-107) mmol/L Carbon Dioxide 31 (21-32) mmol/L BUN 15 (7-18) mg/dL Creatinine 0.8 (0.55-1.02) mg/dL Est Cr Clr Drug Dosing TNP Estimated GFR (MDRD) > 60 Glucose 118 H (74-106) mg/dL Lactic Acid 1.9 (0.4-2.0) mmol/L Calcium 8.9 (8.5-10.1) mg/dL C-Reactive Protein 6.8 H (<=0.9) mg/dL Urine Color (YELLOW) Urine Appearance (CLEAR) Urine pH (5.0-8.0) Ur Specific [place] Urine Protein (NEGATIVE) mg/dL Urine Glucose (UA) (NEGATIVE) mg/dL Urine Ketones (NEGATIVE) mg/dL Urine Occult Blood (NEGATIVE) Urine Nitrite (NEGATIVE) Urine Bilirubin (NEGATIVE) Urine Urobilinogen (0.2) EU/dL Ur Leukocyte Esterase (NEGATIVE) 03/20/17 Range/Units 15:50 WBC (4.0-10.0) x10^3/uL RBC (4.00-5.50) x10^6/uL Hgb (12.0-16.0) g/dL Hct (33.0-47.0) % MCV (78.0-93.0) fL MCH (26.0-32.0) pg MCHC (32.0-36.0) g/dL RDW Coeff of Randell (10.0-15.0) % Plt Count (130-400) x10^3/uL Neut % (Auto) (50.0-80.0) % Lymph % (Auto) (25.0-50.0) % [place] % (Auto) (2.0-11.0) % Eos % (Auto) (0.0-4.0) % Baso % (Auto) (0.2-1.2) % Sodium (136-145) mmol/L Potassium (3.5-5.1) mmol/L Chloride (98-107) mmol/L Carbon Dioxide (21-32) mmol/L BUN (7-18) mg/dL Creatinine (0.55-1.02) mg/dL Est Cr Clr Drug Dosing Estimated GFR (MDRD) Glucose (74-106) mg/dL Lactic Acid (0.4-2.0) mmol/L Calcium (8.5-10.1) mg/dL C-Reactive Protein (<=0.9) mg/dL Urine Color Yellow (YELLOW) Urine Appearance Slightly cloudy H (CLEAR) Urine pH 7.0 (5.0-8.0) Ur Specific [place] 1.020 Urine Protein 100 H (NEGATIVE) mg/dL Urine Glucose (UA) Negative (NEGATIVE) mg/dL Urine Ketones Negative (NEGATIVE) mg/dL Urine Occult Blood Negative (NEGATIVE) Urine Nitrite Negative (NEGATIVE) Urine Bilirubin Negative (NEGATIVE) Urine Urobilinogen 0.2 (0.2) EU/dL Ur Leukocyte Esterase Small H (NEGATIVE) Meds: Medications Generic Name Dose Route Start Last Admin Trade Name Freq PRN Reason Stop Dose Admin Sodium Chloride 1,000 mls @ 999 mls/hr 03/20/17 16:09 Normal Saline IV 03/20/17 17:09 ONETIME ONE Sodium Chloride 10 ml 03/20/17 16:08 Saline Flush FLUSH ASDIRECTED PRN Keep Vein Open Departure - Departure Time of Disposition: 16:09 Disposition: Home, Self-Care 01 Condition: Good Clinical Impression: Diarrhea with dehydration, History of Clostridium difficile infection - Discharge Information Instructions: Rehydration, Adult, Dehydration, Adult, [id number], Clostridium Difficile Infection, [id number], Diarrhea, Adult Referrals: Ally Naranjo MD [Primary Care Provider] - Forms: ED Department Discharge Additional Instructions: 1. Stay well hydrated and rest 2. Continue with [facility] the [facility]; no changes 3. See Primary as symptoms warrant - Problem List Review Problem List Initiated/Reviewed/Updated: Yes - My Orders Last 24 Hours: My Active Orders 03/20/17 15:50 UA W/MICROSCOPIC [URIN] Stat 03/20/17 15:51 C DIFFICILE TOXIN BY PCR [MREF] Stat 03/20/17 16:08 Sodium Chloride 0.9% [Saline Flush] 10 ml FLUSH ASDIRECTED PRN Peripheral IV Insertion Adult [OM.PC] Routine 03/20/17 16:09 Sodium Chloride 0.9% [Normal Saline] 1,000 ml IV ONETIME - Assessment/Plan Last 24 Hours: My Active Orders 03/20/17 15:50 UA W/MICROSCOPIC [URIN] Stat 03/20/17 15:51 C DIFFICILE TOXIN BY PCR [MREF] Stat 03/20/17 16:08 Sodium Chloride 0.9% [Saline Flush] 10 ml FLUSH ASDIRECTED PRN Peripheral IV Insertion Adult [OM.PC] Routine 03/20/17 16:09 Sodium Chloride 0.9% [Normal Saline] 1,000 ml IV ONETIME
[2017-03-20 15:59] LABS: CHLORIDE,CL 100 mmol/L (98-107); SODIUM,NA 137 mmol/L (136-145)
[2017-03-20] MEDS ORDERED: Sodium Chloride 0.9% 10 ML Syringe FLUSH PRN (16:08)
[2017-03-20] MEDS ORDERED: Sodium Chloride 0.9% 1,000 ML IV ONE (16:09)
[2017-03-20 16:13] VITALS: BP 144/81
== END 2017-03-20 16:35 | disposition home or self-care (01) ==
LOC: VM.ED 15:08
DX: E86.0 Dehydration (principal); R19.7 Diarrhea, unspecified; K21.9 Gastro-esophageal reflux disease without esophagitis; M19.90 Unspecified osteoarthritis, unspecified site; M81.0 Age-related osteoporosis without current pathological fracture; F03.90 Unspecified dementia, unspecified severity, without behavioral disturbance, psychotic disturbance, mood disturbance, and anxiety; E03.9 Hypothyroidism, unspecified; Z86.19 Personal history of other infectious and parasitic diseases; Z86.79 Personal history of other diseases of the circulatory system; Z87.440 Personal history of urinary (tract) infections; Z79.899 Other long term (current) drug therapy; Z87.891 Personal history of nicotine dependence
CPT/HCPCS: 36415; 80048; 81001; 83605; 85025; 86140; 87493; 96360; 99285; J7030; 99283-GF

== ENCOUNTER 2017-08-06 15:11 | Observation (INO) | payer MEDICARE, MEDICAID ==
[2017-08-06] MEDS ORDERED: Sodium Chloride 0.9% 10 ML Syringe FLUSH PRN (16:00)
[2017-08-06] MEDS ORDERED: Ondansetron 4 MG/2 ML SDV IV PRN (16:00)
[2017-08-06] MEDS ORDERED: Acetaminophen 325 MG Tab PO PRN ×2 (16:00→16:03)
[2017-08-06] MEDS ORDERED: HYDROmorphone 1 MG/ML Syringe IVPUSH PRN (16:00)
[2017-08-06] MEDS ORDERED: Bisacodyl 5 MG Tab PO PRN (16:03)
[2017-08-06] MEDS ORDERED: Bisacodyl 10 MG Supp RECTAL PRN (16:03)
[2017-08-06] MEDS ORDERED: Benzocaine/Cetylpyridinium/Menthol Lozenge MUCMEM PRN (16:03)
[2017-08-06] MEDS ORDERED: Calcium Carbonate 750 MG Tab.Chew PO PRN (16:03)
[2017-08-06] MEDS ORDERED: Hydrocortisone 1% Crm 30 GM Tube TOP PRN (16:03)
[2017-08-06] MEDS ORDERED: Sennosides 8.6 MG Tab PO PRN (16:03)
--- NOTE | 2017-08-06 16:13 | PCM.HP ---
"H&P History of Present Illness - General Date of Service: 08/06/17 Admit Problem/Dx: Admission Diagnosis/Problem Admission Diagnosis/Problem Anemia Source of Information: Patient, [facility] Records - History of Present Illness Initial Comments - Free Text/Narative: HPI Comments:~Patient is in for significant anemia but that is incidental and largely asymptomatic. ~On routine follow-up she was found to have a hemoglobin of 6.2. ~MCV of 73 so probably long-standing. ~Lives at [facility] denies any melena or hematochezia or hematemesis. ~She does complain of some chronic burning heartburn type symptoms more and esophagus than gastric area. 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 ~They have embolic appearance by MRI but they have not found a source. ~Transthoracic echocardiogram didn't reveal anything. ~She' s been on aspirin since. Vasculitis labs were pretty normal, ESR was normal, had elevated HAKAN with centromere antibody positive which is nonspecific. ~Anca was negative. ~Looks like they wanted do implantable heart monitor to rule out any occult atrial fibrillation. ~She is a former smoker. ~She was started on Aleve once daily when necessary about a week ago. She is not on any gastric prophylaxis Anemia~ Pertinent negatives include no abdominal pain (substernal burning), chest pain, chills~or fever. Medications MedicationsPriortoVisit Outpatient Medications Prior to Visit Medication Sig Dispense Refill atorvaSTATin (LIPITOR) 10 mg tablet Take 1 tablet (10 mg) by mouth every night at bedtime 30 tablet 0 acetaminophen (TYLENOL) 325 mg tablet Give 2 tablets BID scheduled and q4 hrs PRN. 0 senna (SENOKOT) 8.6 MG TABS Take 1 tablet (8.6 mg) by mouth At bedtime as needed for constipation 120 tablet 0 magnesium oxide (MAG-OX 400) 400 mg tablet Take 1 tablet (400 mg) by mouth 1 time per day Crush and mix with food of patient choice. 30 tablet 3 aspirin 81 mg chewable tablet Take 1 tablet (81 mg) by mouth 1 time per day 0 DULoxetine (CYMBALTA) 60 mg capsule Take 60 mg by mouth 1 time per day bisacodyl (DULCOLAX) 10 mg suppository Insert 10 mg rectally 1 time a day as needed for constipation ~ bisacodyl (FLEET LAXATIVE) 5 mg tablet Take 5 mg by mouth 1 time a day as needed for constipation ~ menthol (HALLS) 5.[address] 5.8 mg into mouth 4 times a day as needed for sore throat ~ calcium carbonate (TUMS) 500 MG chewable tablet Take 2 tablets (1,000 mg) by mouth 4 times a day as needed for indigestion 90 tablet 0 gabapentin (NEURONTIN) 100 mg capsule TAKE 1 CAPSULE BY MOUTH TWICE DAILY 60 capsule 11 Teriparatide, Recombinant, (FORTEO SUBCUT) Inject 20 mEq subcutaneously 1 time per day ~ hydrocortisone (HYTONE) 1 % cream Apply to affected area 2 times a day as needed for rash rOPINIRole (REQUIP) 0.5 mg tablet Take 0.5 mg by mouth 3 times a day Takes @ 0900, 1400, and 1900 levothyroxine (SYNTHROID) 25 mcg tablet Take 1 tablet (25 mcg total) by mouth 1 time a day in the morning 90 tablet 3 cyanocobalamin (VITAMIN B-12) 1000 mcg/mL injection solution Inject 1 mL (1,000 mcg) intramuscularly 1 time a month 0 No facility-administered medications prior to visit. Allergies No Known Allergies Problem List Patient Active Problem List Diagnosis Hypothyroidism (acquired) Multi-infarct state Acute encephalopathy Recurrent cellulitis of lower extremity Onychomycosis Encounter for long-term (current) use of medications MEDICATION RECONCILIATION, 12/21/16. Anemia, chronic disease Hypomagnesemia Stress fracture of right foot with routine healing Constipation, unspecified LUPILLO (generalized anxiety disorder) Osteoarthritis of ankle Dementia without behavioral disturbance [facility] placement 07/23 when daughter in law was ill, [facility] admit Senile osteoporosis Really no hx for getting medical care before Her last dexa was just done 05-21-2016 which showed severe osteoporosis with t scores of -5.1 in right hip and - 4.7 in forearm. FRAX: major 31.7% , hip 16.2% . Forteo recommended but not yet started 06/25, she has had a stress fracture in her foot and a compression fracture in her spine. ~Forteo started 08/11/16 Compression fracture Multiple in lumbar and thoracic spine found on x-ray 2014 Recurrent UTI While at [facility] 07/23- Back pain Depression Cymbalta, also tried remeron Insomnia trazodone Medical/Surgical/Family/Social PastMedicalHistory History reviewed. No pertinent past medical history. PastSurgicalHistory History reviewed. No pertinent surgical history. FamilyHistory Family History Problem Relation Age of Onset Family history unknown: Yes SocialHistory Social History Social History Marital status: Spouse name: N/A Number of children: N/A Years of education: N/A Occupational History Not on file. Social History Main Topics Smoking status: Former Smoker Smokeless tobacco: Never Used Alcohol use No Drug use: Not on file Sexual activity: Not on file Other Topics Concern Not on file Social History Narrative Lives at [facility]. Son also lives in town and is involved with decision making for her. ROS Review of Systems Constitutional: Negative for chills~and fever. Respiratory: Negative for shortness of breath. ~ Cardiovascular: Negative for chest pain, palpitations~and leg swelling. Gastrointestinal: Negative for abdominal pain (substernal burning), anal bleeding~and blood in stool. Neurological: Negative for syncope~and light-headedness. Physical / Results BP 132/66 ~Pulse 94 ~Temp 97.3 F (36.3 C) (Tympanic) ~SpO2 92%|| Physical Exam~ Constitutional: She appears well-developed~and well-nourished. No distress. Cardiovascular: Normal rate~and normal heart sounds. ~ No murmur~heard. Pulmonary/Chest: Effort normal~and breath sounds normal. Abdominal: Soft. There is no tenderness. Musculoskeletal: Normal range of motion. Skin: She is not diaphoretic. There is pallor. Assessment / Plan Problem List Items Addressed This Visit~ None Visit Diagnoses~ Microcytic anemia~~~~- ~Primary Relevant Orders COMPLETE BLOOD COUNT WITH DIFFERENTIAL (Completed) COMPREHENSIVE METABOLIC PANEL IRON AND TIBC FERRITIN VITAMIN B12 FOLATE, SERUM TSH REFLEX C-REACTIVE PROTEIN (INFLAMMATION) ESR PERIPHERAL BLOOD SMEAR EXAMINATION Other fatigue~~~~ Relevant Orders TSH REFLEX Plan: Significant anemia with minimal symptoms, hemoglobin 6.2. ~Given vascular hx~I do recommend admitting for type and cross and transfusion of two units. ~I would suspect this is upper gastrointestinal in nature given some burning here along with chronic aspirin and recent Aleve therapy. ~DC the latter. ~Start empiric Protonix. ~Recheck serial hemoglobin in~a.m. but again appears to be long standing given MCV of 73 and no overt bleeding. ~Check iron and other anemia studies. Regarding chronic multi-infarct dementia picture continue low-dose aspirin as long as tolerated. ~Looks like she'll have an implantable registered dental hygienist next month or so to rule out occult atrial fibrillation. ~Not convinced of any vasculitis by labs, elevations of ESR and anti-centromere Ab are still nonspecific. ~Transthoracic echo was pretty normal. ~Neurology following her. DNR code level II. - Related Data Allergies/Adverse Reactions: Allergies Allergy/AdvReac Type Severity Reaction Status Date / Time No Known Allergies Allergy Verified 08/06/17 15:32 Home Medications: Home Meds Acetaminophen [Tylenol] 650 mg PO BID 08/01/14 [History] rOPINIRole HCl [Requip] 0.5 mg PO TID 02/04/16 [History] Gabapentin [Neurontin] 100 mg PO BID 12/09/16 [History] Levothyroxine 25 mcg PO ACBREAKFAST 12/09/16 [History] DULoxetine HCl [Duloxetine HCl] 60 mg PO DAILY 02/16/17 [History] Acetaminophen 650 mg PO Q4H PRN 08/06/17 [History] Aspirin 81 mg PO DAILY 08/06/17 [History] Bisacodyl [Dulcolax] 10 mg RECTAL DAILY PRN 08/06/17 [History] Bisacodyl [Laxative] 5 mg PO DAILY PRN 08/06/17 [History] Calcium Carbonate/Vitamin D3 [Calcium Carb 500 MG] 1,000 mg PO QID PRN 08/06/17 [History] Cyanocobalamin (Vitamin B-12) [B-12] 1,000 mcg PO DAILY 08/06/17 [History] Hydrocortisone [Hydrocortisone 1% Crm] 1 applic TOP BID PRN 08/06/17 [History] Magnesium Oxide 400 mg PO DAILY 08/06/17 [History] Menthol [[place]] 5.8 mg PO QID PRN 08/06/17 [History] Naproxen Sodium [Aleve] 220 mg PO DAILY PRN 08/06/17 [History] Non-Formulary Medication [NF Drug] 20 meq SUBCUT DAILY 08/06/17 [History] Sennosides [Senokot] 8.6 mg PO BEDTIME PRN 08/06/17 [History] atorvaSTATin [Lipitor] 10 mg PO BEDTIME 08/06/17 [History] Past Medical History HEENT History: Reports: None Cardiovascular History: Reports: None Respiratory History: Reports: None Gastrointestinal History: Reports: Chronic Constipation, GERD Genitourinary History: Reports: UTI, Recurrent Musculoskeletal History: Reports: Back Pain, Chronic, Osteoarthritis, Osteoporosis Other Musculoskeletal History: disorder of bone, unspecified Neurological History: Reports: Other (See Below) Other Neuro History: unspecified dementia without behavioral disturbance Psychiatric History: Reports: Anxiety, Dementia, Depression, Mood Swings, Other (See Below) Other Psychiatric History: restless leg syndrome Endocrine/Metabolic History: Reports: Hypothyroidism Hematologic History: Reports: Anemia, Other (See Below) Other Hematologic History: hypomagnesemia Immunologic History: Reports: None Oncologic (Cancer) History: Reports: None Dermatologic History: Reports: None - Infectious Disease History Infectious Disease History: Reports: None Social & Family History - Family History Family Medical History: Noncontributory - Tobacco Use Smoking Status *Q: Former Smoker Years of Tobacco use: 60 Used Tobacco, but Quit: Yes Month Tobacco Last Used: years ago Second Hand Smoke Exposure: No - Caffeine Use Caffeine Use: Reports: Coffee - Alcohol Use Days Per Week of Alcohol Use: 0 - Recreational Drug Use Recreational Drug Use: No - Living Situation & Occupation Living situation: Reports: , Extended Care Facility Occupation: Retired H&P Review of Systems - Review of Systems: Review Of Systems: See Below Exam - Exam Exam: See Below - Vital Signs Vital Signs: Last Vital Signs Temp 37.2 C 08/06/17 15:28 Pulse 92 08/06/17 15:28 Resp 18 08/06/17 15:28 BP 131/71 08/06/17 15:28 Pulse Ox 92 L 08/06/17 15:28 Weight: 57.062 kg *Q Meaningful Use (ADM) - VTE *Q VTE Criteria *Q: - Stroke *Q Stroke Criteria *Q: - AMI *Q AMI Criteria *Q: Problem List Initiated/Reviewed/Updated: Yes Orders Last 24hrs: Active Orders 24 hr Category Date Time Status Admission Status [Patient Status] [ADT] Routine ADT 08/06/17 15:15 Active Patient Status [ADT] Routine ADT 08/06/17 16:00 Ordered Ambulate [RC] PER UNIT ROUTINE Care 08/06/17 16:01 Ordered Oxygen Therapy [RC] PRN Care 08/06/17 16:00 Ordered Up With Assistance [RC] ASDIRECTED Care 08/06/17 16:00 Ordered VTE/DVT Education [RC] PER UNIT ROUTINE Care 08/06/17 16:00 Ordered Vital Signs [RC] Q4H Care 08/06/17 16:00 Ordered Regular Diet [DIET] Diet 08/06/17 Dinner Ordered BASIC METABOLIC PANEL,BMP [CHEM] AM Lab 08/07/17 05:11 Ordered CBC WITH AUTO DIFF [HEME] AM Lab 08/07/17 05:11 Ordered CULTURE MRSA SURVEY [RM] Routine Lab 08/06/17 16:02 Uncollected RED BLOOD CELLS LP [BBK] Routine Lab 08/06/17 16:09 Ordered Acetaminophen [Tylenol] Med 08/06/17 20:00 Ordered 650 mg PO BID Acetaminophen [Tylenol] Med 08/06/17 16:00 Ordered 650 mg PO Q4H PRN Acetaminophen [Tylenol] Med 08/06/17 16:03 Ordered 650 mg PO Q4H PRN Aspirin Med 08/08/17 08:00 Ordered 81 mg PO DAILY Bisacodyl [Dulcolax] Med 08/06/17 16:03 Ordered 10 mg RECTAL DAILY PRN Bisacodyl [Laxative] Med 08/06/17 16:03 Ordered 5 mg PO DAILY PRN Calcium Carbonate/Vitamin D3 [Calcium Carb 500 MG] Med 08/06/17 16:03 Ordered 1,000 mg PO QID PRN Cyanocobalamin (Vitamin B12) [Vitamin B12] Med 08/07/17 08:00 Ordered 1,000 mcg PO DAILY DULoxetine [Cymbalta] Med 08/07/17 08:00 Ordered 60 mg PO DAILY Gabapentin [Neurontin] Med 08/06/17 20:00 Ordered 100 mg PO BID HYDROmorphone [Dilaudid] Med 08/06/17 16:00 Ordered 0.25 mg IVPUSH Q2H PRN Hydrocortisone [Hydrocortisone 1% Crm] Med 08/06/17 16:03 Ordered 1 applic TOP BID PRN Levothyroxine Med 08/07/17 07:00 Ordered 25 mcg PO ACBREAKFAST Magnesium Oxide Med 08/07/17 08:00 Ordered 400 mg PO DAILY Menthol [[place] Sugar Free] Med 08/06/17 16:03 Ordered 5.8 mg PO QID PRN Non-Formulary Medication [NF Drug] Med 08/07/17 08:00 Ordered 20 meq SUBCUT DAILY Ondansetron [Zofran] Med 08/06/17 16:00 Ordered 4 mg IV Q6H PRN Sennosides [Senna] Med 08/06/17 16:03 Ordered 8.6 mg PO BEDTIME PRN Sodium Chloride 0.9% [Saline Flush] Med 08/06/17 16:00 Ordered 10 ml FLUSH ASDIRECTED PRN atorvaSTATin [Lipitor] Med 08/06/17 20:00 Ordered 10 mg PO BEDTIME rOPINIRole [Requip] Med 08/06/17 20:00 Ordered 0.5 mg PO TID Blood Transfusion Reflex Orders [OM.PC] Routine Oth 08/06/17 16:09 Ordered Peripheral IV Insertion Adult [OM.PC] Routine Oth 08/06/17 16:00 Ordered Transfuse Red Blood Cells [COMM] Routine Oth 08/06/17 16:09 Ordered Resuscitation Status Routine Resus Stat 08/06/17 16:00 Ordered Medication Orders Acetaminophen (Tylenol) 650 mg PO Q4H PRN PRN Reason: Pain (Mild 1-3)/fever Acetaminophen (Tylenol) 650 mg PO Q4H PRN PRN Reason: Pain Acetaminophen (Tylenol) 650 mg PO BID [facility] Aspirin (Aspirin) 81 mg PO DAILY [facility] Atorvastatin Calcium (Lipitor) 10 mg PO BEDTIME MARIANA Bisacodyl (Dulcolax) 10 mg RECTAL DAILY PRN PRN Reason: Constipation Cyanocobalamin (Vitamin B12) 1,000 mcg PO DAILY [facility] Duloxetine HCl (Cymbalta) 60 mg PO DAILY [facility] Gabapentin (Neurontin) 100 mg PO BID [facility] Hydrocortisone (Hydrocortisone 1% Crm) gm TOP BID PRN PRN Reason: Rash Hydromorphone HCl (Dilaudid) 0.25 mg IVPUSH Q2H PRN PRN Reason: Pain (severe 7-10) Levothyroxine Sodium (Levothyroxine) 25 mcg PO ACBREAKFAST [facility] Magnesium Oxide (Magnesium Oxide) 400 mg PO DAILY [facility] Non-Formulary Medication (Bisacodyl [Laxative]) 5 mg PO DAILY PRN PRN Reason: Constipation Non-Formulary Medication (Calcium Carbonate/Vitamin D3 [Calcium Carb 500 Mg]) 1 ,000 mg PO QID PRN PRN Reason: Indigestion Non-Formulary Medication (Menthol [[place] Sugar Free]) 5.8 mg PO QID PRN PRN Reason: Sore Throat Non-Formulary Medication (Nf Drug) each SUBCUT DAILY [facility] Ondansetron HCl (Zofran) 4 mg IV Q6H PRN PRN Reason: Nausea/Vomiting Ropinirole HCl (Requip) 0.5 mg PO TID MARIANA Senna (Senna) 8.6 mg PO BEDTIME PRN PRN Reason: Constipation Sodium Chloride (Saline Flush) 10 ml FLUSH ASDIRECTED PRN PRN Reason: Keep Vein Open"
[2017-08-06] MEDS: rOPINIRole 0.5 MG Tab PO SCH (18:40)
[2017-08-06] MEDS: Gabapentin 100 MG Cap PO SCH (19:48)
[2017-08-06] MEDS: Acetaminophen 325 MG Tab PO SCH (19:49)
[2017-08-06] MEDS ORDERED: atorvaSTATin 10 MG Tab PO SCH (20:00)
[2017-08-07 04:59] VITALS: BP 104/49
[2017-08-07] MEDS ORDERED: Levothyroxine 25 MCG Tab PO SCH (07:00)
[2017-08-07 07:40] LABS: CHLORIDE,CL 105 mmol/L (98-107); SODIUM,NA 138 mmol/L (136-145)
[2017-08-07] MEDS ORDERED: DULoxetine 60 MG Cap PO SCH (08:00)
[2017-08-07] MEDS ORDERED: FORTEO SUBCUT SCH (08:00)
[2017-08-07] MEDS ORDERED: Cyanocobalamin (Vitamin B12) 1,000 MCG Tab PO SCH (08:00)
[2017-08-07] MEDS ORDERED: Magnesium Oxide 400 MG Tab PO SCH (08:00)
[2017-08-07] MEDS: Gabapentin 100 MG Cap PO SCH (08:28)
[2017-08-07] MEDS: Acetaminophen 325 MG Tab PO SCH (08:28)
[2017-08-07] MEDS: rOPINIRole 0.5 MG Tab PO SCH (08:31)
--- NOTE | 2017-08-07 09:04 | PCM.DCSUM1 ---
Discharge Summary - Hospital Course Free Text/Narrative:: Admitted yesterday for incidentally discovered severe anemia of 6.2, largely asymptomatic. Given two units overnight he without complication. Hemoglobin up to 9.3 today. Quite microcytic and iron deficient, suspect this is long- standing. The see home on Protonix daily, suspect chronic upper GI source. Discontinue naproxen. Continue low-dose aspirin given multi-infarct stroke history. Start iron ferrous sulfate 325 mg daily at home. Recheck CBC early next week. Hemoccult stools at [facility]. If persisting or worse could consider further workup with endoscopy otherwise not indicated at this time. Given her age and other medical issues. Follow-up with neurology and possible rheumatology for history of multiple infarcts, source unclear, will have cardiac device implanted to rule out occult atrial fibrillation. Vasculitis possibly in differential. ESR is elevated but no other specific findings. - Discharge Data Discharge Date: 08/07/17 Discharge Disposition: DC/Tfer to [facility] 03 Condition: Good - Discharge Plan Prescriptions/Med Rec: Ferrous Sulfate 325 mg PO DAILY #90 tablet Pantoprazole Sodium [Protonix] 20 mg PO DAILY #90 tablet. Home Medications: Home Meds Acetaminophen [Tylenol] 650 mg PO BID 08/01/14 [History] rOPINIRole HCl [Requip] 0.5 mg PO TID 02/04/16 [History] Gabapentin [Neurontin] 100 mg PO BID 12/09/16 [History] Levothyroxine 25 mcg PO ACBREAKFAST 12/09/16 [History] DULoxetine HCl [Duloxetine HCl] 60 mg PO DAILY 02/16/17 [History] Acetaminophen 650 mg PO Q4H PRN 08/06/17 [History] Aspirin 81 mg PO DAILY 08/06/17 [History] Bisacodyl [Dulcolax] 10 mg RECTAL DAILY PRN 08/06/17 [History] Bisacodyl [Laxative] 5 mg PO DAILY PRN 08/06/17 [History] Calcium Carbonate/Vitamin D3 [Calcium Carb 500 MG] 1,000 mg PO QID PRN 08/06/17 [History] Cyanocobalamin (Vitamin B-12) [B-12] 1,000 mcg PO DAILY 08/06/17 [History] Hydrocortisone [Hydrocortisone 1% Crm] 1 applic TOP BID PRN 08/06/17 [History] Magnesium Oxide 400 mg PO DAILY 08/06/17 [History] Menthol [[place] Sugar Free] 5.8 mg PO QID PRN 08/06/17 [History] Non-Formulary Medication [NF Drug] 20 meq SUBCUT DAILY 08/06/17 [History] Sennosides [Senokot] 8.6 mg PO BEDTIME PRN 08/06/17 [History] atorvaSTATin [Lipitor] 10 mg PO BEDTIME 08/06/17 [History] Ferrous Sulfate 325 mg PO DAILY #90 tablet 08/07/17 [Rx] Pantoprazole Sodium [Protonix] 20 mg PO DAILY #90 tablet. 08/07/17 [Rx] Sodium Chloride 0.9% [Saline Flush] 10 ml FLUSH ASDIRECTED PRN syringe [Rx] - Patient Data Vitals - Most Recent: Last Vital Signs Temp 36.8 C 08/07/17 04:58 Pulse 88 08/07/17 01:57 Resp 18 08/07/17 04:58 BP 104/49 L 08/07/17 04:58 Pulse Ox 84 L 08/07/17 04:58 Weight - Most Recent: 57.062 kg I&O - Last 24 hours: Intake & Output 08/06/17 08/07/17 08/07/17 22:59 06:59 14:59 Intake Total 1174 666 240 Output Total 300 720 Balance 874 -54 240 Lab Results - Last 24 hrs: Laboratory Results - last 24 hr 08/06/17 08/07/17 08/07/17 Range/Units 16:46 06:23 06:23 WBC 10.4 H (4.0-10.0) x10^3/uL RBC 3.97 L (4.00-5.50) x10^6/uL Hgb 9.2 L D (12.0-16.0) g/dL Hct 30.2 L (33.0-47.0) % MCV 76.1 L D (78.0-93.0) fL MCH 23.2 L (26.0-32.0) pg MCHC 30.5 L (32.0-36.0) g/dL RDW Coeff of Randell 18.2 H (10.0-15.0) % Plt Count 355 (130-400) x10^3/uL Neut % (Auto) 80.2 H (50.0-80.0) % Lymph % (Auto) 9.2 L (25.0-50.0) % [place] % (Auto) 7.7 (2.0-11.0) % Eos % (Auto) 2.7 (0.0-4.0) % Baso % (Auto) 0.2 (0.2-1.2) % Sodium 138 (136-145) mmol/L Potassium 4.1 (3.5-5.1) mmol/L Chloride 105 (98-107) mmol/L Carbon Dioxide 24 (21-32) mmol/L BUN 15 (7-18) mg/dL Creatinine 0.7 (0.55-1.02) mg/dL Est Cr Clr Drug Dosing 48.34 mL/min Estimated GFR (MDRD) > 60 Glucose 96 (74-106) mg/dL Calcium 8.1 L (8.5-10.1) mg/dL Blood Type A POSITIVE Gel Antibody Screen Negative Crossmatch See Detail Med Orders - Current: Current Medications Acetaminophen (Tylenol) 650 mg PO Q4H PRN PRN Reason: Pain (Mild 1-3)/fever Acetaminophen (Tylenol) 650 mg PO BID [facility] Last Admin: 08/07/17 08:28 Dose: 650 mg Aspirin (Halfprin) 81 mg PO DAILY [facility] Atorvastatin Calcium (Lipitor) 10 mg PO BEDTIME [facility] Last Admin: 08/06/17 19:48 Dose: 10 mg Benzocaine/Menthol (Cepacol Sore Throat) 1 lozenge MUCMEM QID PRN PRN Reason: Sore Throat Bisacodyl (Dulcolax) 10 mg RECTAL DAILY PRN PRN Reason: Constipation Bisacodyl (Dulcolax) 5 mg PO DAILY PRN PRN Reason: Constipation Calcium Carbonate/Glycine (Tums Extra Strength) 750 mg PO QID PRN PRN Reason: Indigestion Cyanocobalamin (Vitamin B12) 1,000 mcg PO DAILY [facility] Last Admin: 08/07/17 08:28 Dose: 1,000 mcg Duloxetine HCl (Cymbalta) 60 mg PO DAILY [facility] Last Admin: 08/07/17 08:29 Dose: 60 mg Gabapentin (Neurontin) 100 mg PO BID [facility] Last Admin: 08/07/17 08:28 Dose: 100 mg Hydrocortisone (Hydrocortisone 1% Crm) 0 gm TOP BID PRN PRN Reason: Rash Hydromorphone HCl (Dilaudid) 0.25 mg IVPUSH Q2H PRN PRN Reason: Pain (severe 7-10) Levothyroxine Sodium (Levothyroxine) 25 mcg PO ACBREAKFAST [facility] Last Admin: 08/07/17 06:43 Dose: 25 mcg Magnesium Oxide (Magnesium Oxide) 400 mg PO DAILY [facility] Last Admin: 08/07/17 08:29 Dose: 400 mg Non-Formulary Medication (Nf Drug) each SUBCUT DAILY [facility] Ondansetron HCl (Zofran) 4 mg IV Q6H PRN PRN Reason: Nausea/Vomiting Last Admin: 08/07/17 02:08 Dose: 4 mg Ropinirole HCl (Requip) 0.5 mg PO TID@0900,1400,1900 [facility] Last Admin: 08/07/17 08:31 Dose: 0.5 mg Senna (Senna) 8.6 mg PO BEDTIME PRN PRN Reason: Constipation Sodium Chloride (Saline Flush) 10 ml FLUSH ASDIRECTED PRN PRN Reason: Keep Vein Open Discontinued Medications Acetaminophen (Tylenol) 650 mg PO Q4H PRN PRN Reason: Pain *Q Meaningful Use (DIS) - VTE *Q VTE Criteria *Q: - Stroke *Q Stroke Criteria *Q: - AMI *Q AMI Criteria *Q:
[2017-08-08] MEDS ORDERED: Aspirin 81 MG Tab.EC PO SCH (08:00)
== END 2017-08-07 11:30 ==
LOC: VM.MS 15:15
PROVIDERS: ADMIT Family Medicine; ATTEND Family Medicine
DX: D64.9 Anemia, unspecified (principal); E03.9 Hypothyroidism, unspecified; E83.42 Hypomagnesemia; F41.1 Generalized anxiety disorder; F32.9 Major depressive disorder, single episode, unspecified; K59.09 Other constipation; K21.9 Gastro-esophageal reflux disease without esophagitis; F01.50 Vascular dementia, unspecified severity, without behavioral disturbance, psychotic disturbance, mood disturbance, and anxiety; Z79.82 Long term (current) use of aspirin; Z79.899 Other long term (current) drug therapy; Z87.891 Personal history of nicotine dependence
CPT/HCPCS: 36415; 36430; 80048; 83010; 85025; 86850; 86900; 86901; 86920; 86922; A9270; J2405; P9016; 96374; G0378; G0379

== ENCOUNTER 2017-09-25 07:18 | Emergency (ER) | payer MEDICARE, MEDICAID ==
--- NOTE | 2017-09-25 08:03 | EDM.PDOC ---
ED HPI GENERAL MEDICAL PROBLEM - General Chief Complaint: Lower Extremity Injury/Pain Stated Complaint: ER Time Seen by Provider: 09/25/17 07:18 Source of Information: Reports: Patient History Limitations: Reports: No Limitations - History of Present Illness INITIAL COMMENTS - FREE TEXT/NARRATIVE: Pt. presents to ER with complaints of pain to her R hip and shoulder. Pt. fell onto her R side earlier this AM. She has since been unable to ambulate and staff noted edema to R upper thigh area. EMS states that pts. R lower extremity was "outwardly rotated". She denies any other trauma. Denies any chest pain, shortness of breath, or weakness prior to the fall. Pt. also complains of injury to her R upper arm as well. Denies any numbness/ tingling in the distal portion of the extremity. She states that she did land on the tip of her R shoulder when she fell. Onset: Today Onset Date: 09/25/17 Onset Time: 05:30 Location: Reports: Upper Extremity, Right, Lower Extremity, Right Severity: Severe Associated Symptoms: Denies: Confusion, Headaches, Nausea/Vomiting, Seizure, Shortness of Breath, Syncope Right Hip Pain Score (Numeric/FACES): 10 - Related Data Allergies Allergy/AdvReac Type Severity Reaction Status Date / Time No Known Allergies Allergy Verified 09/25/17 07:37 Home Meds: Home Meds Acetaminophen [Tylenol] 650 mg PO BID 08/01/14 [History] rOPINIRole HCl [Requip] 0.5 mg PO TID 02/04/16 [History] Gabapentin [Neurontin] 100 mg PO BID 12/09/16 [History] Levothyroxine 25 mcg PO ACBREAKFAST 12/09/16 [History] DULoxetine HCl [Duloxetine HCl] 60 mg PO DAILY 02/16/17 [History] Acetaminophen 650 mg PO Q4H PRN 08/06/17 [History] Aspirin 81 mg PO DAILY 08/06/17 [History] Bisacodyl [Dulcolax] 10 mg RECTAL DAILY PRN 08/06/17 [History] Bisacodyl [Laxative] 5 mg PO DAILY PRN 08/06/17 [History] Calcium Carbonate/Vitamin D3 [Calcium Carb 500 MG] 1,000 mg PO QID PRN 08/06/17 [History] Cyanocobalamin (Vitamin B-12) [B-12] 1,000 mcg PO DAILY 08/06/17 [History] Hydrocortisone [Hydrocortisone 1% Crm] 1 applic TOP BID PRN 08/06/17 [History] Magnesium Oxide 400 mg PO DAILY 08/06/17 [History] Menthol [[place] Sugar Free] 5.8 mg PO QID PRN 08/06/17 [History] Non-Formulary Medication [NF Drug] 20 meq SUBCUT DAILY 08/06/17 [History] Sennosides [Senokot] 8.6 mg PO BEDTIME PRN 08/06/17 [History] atorvaSTATin [Lipitor] 10 mg PO BEDTIME 08/06/17 [History] Ferrous Sulfate 325 mg PO DAILY #90 tablet 08/07/17 [Rx] Pantoprazole Sodium [Protonix] 20 mg PO DAILY #90 tablet. 08/07/17 [Rx] Sodium Chloride 0.9% [Saline Flush] 10 ml FLUSH ASDIRECTED PRN syringe [Rx] Past Medical History HEENT History: Reports: None Cardiovascular History: Reports: None Respiratory History: Reports: None Gastrointestinal History: Reports: Chronic Constipation, GERD Genitourinary History: Reports: UTI, Recurrent Musculoskeletal History: Reports: Back Pain, Chronic, Osteoarthritis, Osteoporosis Other Musculoskeletal History: disorder of bone, unspecified Neurological History: Reports: Other (See Below) Other Neuro History: unspecified dementia without behavioral disturbance Psychiatric History: Reports: Anxiety, Dementia, Depression, Mood Swings, Other (See Below) Other Psychiatric History: restless leg syndrome Endocrine/Metabolic History: Reports: Hypothyroidism Hematologic History: Reports: Anemia, Other (See Below) Other Hematologic History: hypomagnesemia Immunologic History: Reports: None Oncologic (Cancer) History: Reports: None Dermatologic History: Reports: None - Infectious Disease History Infectious Disease History: Reports: None Social & Family History - Family History Family Medical History: Noncontributory - Tobacco Use Smoking Status *Q: Unknown Ever Smoked Years of Tobacco use: 60 Used Tobacco, but Quit: Yes Month Tobacco Last Used: years ago Second Hand Smoke Exposure: No - Caffeine Use Caffeine Use: Reports: Coffee - Alcohol Use Days Per Week of Alcohol Use: 0 - Recreational Drug Use Recreational Drug Use: No - Living Situation & Occupation Living situation: Reports: , Extended Care Facility Occupation: Retired Review of Systems - Review of Systems Review Of Systems: See Below Constitutional: Reports: No Symptoms Eyes: Reports: No Symptoms Ears: Reports: No Symptoms Nose: Reports: No Symptoms Mouth/Throat: Reports: No Symptoms Respiratory: Reports: No Symptoms Cardiovascular: Reports: No Symptoms GI/Abdominal: Reports: No Symptoms Genitourinary: Reports: No Symptoms Musculoskeletal: Reports: Arm Pain (R proximal lateral arm pain), Leg Pain ( pain and crepitus on manipulation of R lower extremity. ), Joint Pain, Joint Swelling (R hip) Skin: Reports: No Symptoms Neurological: Reports: No Symptoms Psychiatric: Reports: No Symptoms ED EXAM, GENERAL - Physical Exam Exam: See Below Exam Limited By: No Limitations General Appearance: Moderate Distress Ears: Normal External Exam Nose: Normal Inspection, Normal Mucosa, No Blood Throat/Mouth: Normal Inspection, Normal Lips, Normal Oropharynx, Normal Voice, No Airway Compromise Head: Normocephalic. No: Facial Swelling, Facial Tenderness Neck: Normal Inspection, Supple, Non-Tender, Full Range of Motion Respiratory/Chest: No Respiratory Distress, Lungs Clear, Normal Breath Sounds, No Accessory Muscle Use, Chest Non-Tender Cardiovascular: Normal Peripheral Pulses, Regular Rate, Rhythm, No Edema, No Gallop, No JVD, No Murmur, No Rub Peripheral Pulses: 2+: Radial (L), Radial (R), Dorsalis Pedis (L), Dorsalis Pedis (R) GI/Abdominal: Normal Bowel Sounds, Soft, Non-Tender, No Organomegaly, No Distention, No Abnormal Bruit, No Mass (Female) Exam: Normal External Exam Back Exam: Normal Inspection. No: Paraspinal Tenderness, Vertebral Tenderness Extremities: Normal Capillary Refill, Arm Pain (Tenderness-Lateral aspect of R shoulder and tenderness/crepitus on palpation/manipulation of R hip), Limited Range of Motion Neurological: Alert, Oriented, CN II-XII Intact, Normal Cognition, Normal Gait, Normal Reflexes, No Motor/Sensory Deficits Psychiatric: Normal Affect, Normal Mood Skin Exam: Warm, Dry, Intact, Normal Color, No Rash Lymphatic: No Adenopathy Course - Vital Signs Last Recorded V/S: Last Vital Signs Temp 36.7 C 09/25/17 07:18 Pulse 80 09/25/17 07:18 Resp 18 09/25/17 07:18 BP 115/77 09/25/17 07:18 Pulse Ox - Orders/Labs/Meds Orders: Active Orders 24 hr Category Date Time Status Camacho Catheter Insertion [Insert Urinary Catheter] [OM. Care 09/25/17 08:45 Ordered PC] Q24H Urinary Catheter Assessment [RC] ASDIRECTED Care 09/25/17 08:35 Active Hip Min 2V or 3V w Pelvis Rt [CR] Stat Exams 09/25/17 07:32 Taken Shoulder Comp Rt [CR] Stat Exams 09/25/17 07:34 Taken Sodium Chloride 0.9% [Normal Saline] 1,000 ml Med 09/25/17 09:02 Active IV ONETIME Medication Orders Sodium Chloride (Normal Saline) 1,000 mls @ 100 mls/hr IV ONETIME ONE Stop: 09/25/17 19:01 Labs: Laboratory Tests 09/25/17 09/25/17 09/25/17 Range/Units 08:29 08:29 08:29 WBC 14.2 H (4.0-10.0) x10^3/uL RBC 4.54 (4.00-5.50) x10^6/uL Hgb 11.0 L D (12.0-16.0) g/dL Hct 35.0 (33.0-47.0) % MCV 77.1 L (78.0-93.0) fL MCH 24.2 L (26.0-32.0) pg MCHC 31.4 L (32.0-36.0) g/dL RDW Coeff of Randell 23.8 H (10.0-15.0) % Plt Count 273 D (130-400) x10^3/uL Neut % (Auto) 82.6 H (50.0-80.0) % Lymph % (Auto) 10.2 L (25.0-50.0) % [place] % (Auto) 5.4 (2.0-11.0) % Eos % (Auto) 1.7 (0.0-4.0) % Baso % (Auto) 0.1 L (0.2-1.2) % PT 10.3 (9.8-11.8) SEC INR 1.0 L (2.0-3.5) Sodium 139 (136-145) mmol/L Potassium 3.3 L (3.5-5.1) mmol/L Chloride 102 (98-107) mmol/L Carbon Dioxide 24 (21-32) mmol/L BUN 11 (7-18) mg/dL Creatinine 0.9 (0.55-1.02) mg/dL Est Cr Clr Drug Dosing 43.30 mL/min Estimated GFR (MDRD) > 60 Glucose 172 H (74-106) mg/dL Calcium 9.1 (8.5-10.1) mg/dL Corrected Calcium 9.50 (8.5-10.1) mg/dL Total Bilirubin 0.5 (0.2-1.0) mg/dL AST 32 (15-37) U/L ALT 31 (14-59) U/L Alkaline Phosphatase 119 H (46-116) U/L Total Protein 8.0 (6.4-8.2) g/dL Albumin 3.5 (3.4-5.0) g/dL Globulin 4.5 Albumin/Globulin Ratio 0.78 Meds: Medications Generic Name Dose Route Start Last Admin Trade Name Freq PRN Reason Stop Dose Admin Sodium Chloride 1,000 mls @ 100 mls/hr 09/25/17 09:02 Normal Saline IV 09/25/17 19:01 ONETIME ONE Discontinued Medications Generic Name Dose Route Start Last Admin Trade Name Freq PRN Reason Stop Dose Admin Morphine Sulfate 4 mg 09/25/17 08:38 09/25/17 08:51 Morphine IVPUSH 09/25/17 08:39 4 mg ONETIME ONE Administration - Radiology Interpretation Free Text/Narrative:: 1. Acute comminuted and displaced R proximal femur fracture involving the intertrocanteric and subtrocanteric segments. 2. Acute R humeral neck fracture. Departure - Departure Time of Disposition: 09:35 Disposition: DC/Tfer to Acute Hospital 02 Clinical Impression: Intertrochanteric fracture, hip - Discharge Information Referrals: Ally Naranjo MD [Primary Care Provider] - Forms: ED Department Discharge - My Orders Last 24 Hours: My Active Orders 09/25/17 07:32 Hip Min 2V or 3V w Pelvis Rt [CR] Stat 09/25/17 07:34 Shoulder Comp Rt [CR] Stat 09/25/17 08:35 Urinary Catheter Assessment [RC] ASDIRECTED 09/25/17 08:45 Camacho Catheter Insertion [Insert Urinary Catheter] [OM.PC] Q24H 02/16/18 09:02 Sodium Chloride 0.9% [Normal Saline] 1,000 ml IV ONETIME - Assessment/Plan Last 24 Hours: My Active Orders 09/25/17 07:32 Hip Min 2V or 3V w Pelvis Rt [CR] Stat 09/25/17 07:34 Shoulder Comp Rt [CR] Stat 09/25/17 08:35 Urinary Catheter Assessment [RC] ASDIRECTED 09/25/17 08:45 Camacho Catheter Insertion [Insert Urinary Catheter] [OM.PC] Q24H 09/25/17 09:02 Sodium Chloride 0.9% [Normal Saline] 1,000 ml IV ONETIME
[2017-09-25] MEDS: Morphine 4 MG/ML Syringe IVPUSH ONE (08:51)
[2017-09-25] MEDS: Sodium Chloride 0.9% 1,000 ML IV ONE (08:51)
[2017-09-25 08:55] LABS: CHLORIDE,CL 102 mmol/L (98-107); SODIUM,NA 139 mmol/L (136-145)
[2017-09-25 09:29] VITALS: BP 153/73
== END 2017-09-25 13:28 | disposition short-term general hospital (02) ==
LOC: VM.ED 07:18
DX: S72.141A Displaced intertrochanteric fracture of right femur, initial encounter for closed fracture (principal); E03.9 Hypothyroidism, unspecified; Z79.899 Other long term (current) drug therapy; Z79.82 Long term (current) use of aspirin; Z87.891 Personal history of nicotine dependence; W19.XXXA Unspecified fall, initial encounter
CPT/HCPCS: 36415; 70450; 73030; 73502; 80053; 85025; 85610; 96361; 96374; 99285; J2270; J7030